=== PATIENT | male | born 1950 | race African-American/Black ===

== ENCOUNTER 2017-09-04 13:25 | Inpatient (IN) | payer MEDICARE, OTHER ==
[2017-09-04] MEDS ORDERED: Nitroglycerin 2% Ointment 1 INCH/1 GM Packet ONE (14:13)
[2017-09-04] MEDS ORDERED: Furosemide 40 MG/4 ML VIAL ONE (14:14)
--- NOTE | 2017-09-04 14:52 | RAD ---
SINGLE VIEW OF THE CHEST: Comparison: 09-08-11 History: Shortness of breath. Dyspnea. FINDINGS: Single view of the chest shows a normal sized cardiomediastinal silhouette. There is no evidence of c onsolidation, mass, or pleural effusion. The bones are unremarkable. IMPRESSION: No evidence of acute cardiopulmonary disease. POS: [facility]
[2017-09-04 14:56] LABS: #Eosinphils 0.1 thou/uL (0.0-0.7); #Lymphocytes 1.6 thou/uL (1.20-3.40); #Monocytes 0.4 thou/uL (0.11-0.59); #Neutrophils 11.3 thou/uL (1.40-6.50); %Basophils 0.2 % (0.0-1.0); %Eosinophils 0.4 % (0.0-10.0); %Lymphocytes 11.6 % (21.0-51.0); %Monocytes 2.6 % (0.0-10.0); %Neutrophils 85.2 % (42.0-75.0); Hemoglobin 12.1 g/dL (14.0-18.0); Mean Corpuscular HGB CONC 30.7 g/dL (32.0-36.0); Mean Corpuscular Volume 94.5 fl (80.0-94.0); Platelet Count 333 thou/uL (130-400); RBC Distribution Width 15.1 % (11.5-14.5); Red Blood Cell (RBC) Count 4.18 mill/uL (4.70-6.10); White Blood Cell (WBC) Count 13.3 thou/uL (4.8-10.8)
[2017-09-04 15:16] LABS: AST (SGOT) 27 U/L (5-34); Albumin 3.4 g/dL (3.4-4.8); Anion Gap 9 mmol/L (10-20); Bilirubin, Total 0.4 mg/dL (0.2-1.2); Calc. Creatinine Clearance 0 mL/min (70-130); Calcium 9.4 mg/dL (7.8-10.44); Carbon Dioxide 32 mmol/L (23-31); Chloride 105 mmol/L (98-107); Estimated GFR-MDRD 42; Globulin 3.7 g/dL (2.4-3.5); Glucose 180 mg/dL (80-115); Potassium 4.7 mmol/L (3.5-5.1); Protein, Total 7.1 g/dL (5.8-8.1); Sodium 141 mmol/L (136-145)
[2017-09-04 15:20] LABS: ALT (SGPT) 29 U/L (8-55); Alkaline Phosphatase 74 U/L (40-150); BUN (Urea Nitrogen) 31 mg/dL (8.4-25.7)
[2017-09-04 15:22] LABS: Troponin I 0.263 ng/mL (< 0.028)
[2017-09-04 15:24] LABS: CKMB 9.1 ng/mL (0-6.6)
[2017-09-04] MEDS ORDERED: Enoxaparin Sodium 80 MG/0.8 ML SYRINGE ONE (15:54)
--- NOTE | 2017-09-04 17:17 | PDOC.EVN ---
Event Note - Event Note Event Note: [id number] h&p dictated 1. Acute CHF exacerbation 2. Abnormal cardiac enzymes 3. dm type 2 4. H/O CAD
[2017-09-04] MEDS ORDERED: Dextrose 5% in Water 1,000 ML IV PRN (17:18)
[2017-09-04] MEDS ORDERED: Dextrose 50% Abboject 50 ML SYRINGE SLOW IVP PRN (17:18)
[2017-09-04] MEDS ORDERED: HumaLOG 300 UNITS/3 ML VIAL SC PRN (17:18)
[2017-09-04 18:37] LABS: Troponin I 0.243 ng/mL (< 0.028)
[2017-09-04 19:00] LABS: pH, Arterial 7.16 (7.35-7.45)
[2017-09-04 19:01] LABS: Actual Bicarbonate (HCO3a) 35.7 mEq/L (22-26); CO2 Tension 102.8 mmHg (35.0-45.0); Hematocrit-ABG 39.7 % (42.0-52.0); O2 Tension (PaO2) 69.7 mmHg (80.0-100.0)
[2017-09-04 19:02] LABS: Analyzer IN Cardio ER; Calcium, Ionized 1.3 mmol/L (1.12-1.30); Puncture Site RRA
[2017-09-04] MEDS ORDERED: Azithromycin 500 MG VIAL ONE (20:39)
[2017-09-04 20:49] LABS: CO2 Tension 93.7 mmHg (35.0-45.0); pH, Arterial 7.18 (7.35-7.45)
[2017-09-04 20:50] LABS: Actual Bicarbonate (HCO3a) 34.5 mEq/L (22-26); Base Excess (BEa) 3.7 mEq/L (0 (+/-) 2.5); Hematocrit-ABG 39.9 % (42.0-52.0); O2 Tension (PaO2) 113.5 mmHg (80.0-100.0)
[2017-09-04 20:51] LABS: Analyzer IN Cardio ER; Calcium, Ionized 1.3 mmol/L (1.12-1.30); Puncture Site RRA
[2017-09-04 20:52] LABS: ALV-art Gradient 121.375 (0-20)
[2017-09-04 21:35] LABS: Troponin I 0.218 ng/mL (< 0.028)
[2017-09-04 21:37] LABS: CKMB 8.5 ng/mL (0-6.6); Critical Call CKMBM RESULT DECREASING
[2017-09-04] MEDS: Furosemide 40 MG/4 ML VIAL SLOW IVP SCH (21:59)
[2017-09-04 22:44] VITALS: BMI 29.0
--- NOTE | 2017-09-05 02:35 | HP ---
DATE OF ADMISSION: 09/04/2017 CHIEF COMPLAINT: Dyspnea. HISTORY OF PRESENT ILLNESS: The patient is a 67-year-old male with past medical history of diabetes type 2, hypertension, coronary artery disease, ME in the past, now came today complaining of dyspnea, dyspnea was started 3 days back, dyspnea is persistent, dyspnea occurs even on lying flat, he cannot even lie flat. Complains of cough associated with white sputum production. Complains of bilateral lower extremity swelling. Swelling is first got worse swelling, swelling extends up to the thigh and the scrotal area also. Denies any fever, denies any chills. Dyspnea persisted today so he came to the ER. Denies any nausea, denies vomiting, denies any diarrhea. PAST MEDICAL HISTORY: As per HPI. PAST SURGICAL HISTORY: None. SOCIAL HISTORY: He used to smoke, but does not smoke anymore. Denies alcohol, denies any drugs. FAMILY HISTORY: Reviewed and positive for heart problems. MEDICATIONS: Reviewed. REVIEW OF SYSTEMS: Constitutional: Denies any fever, denies any chills. Eyes: Denies vision probl ems. Ears: Denies hearing loss. Neck: Denies any pain. Cardiovascular: Denies any chest pain, d enies any palpation. Respiratory: Positive for cough and sputum production. Gastrointestinal: Den ies nausea, vomiting. Musculoskeletal: positive for bilateral lower extremity swelling. Inte gumentary: No rashes seen. Psychiatric: anxiety. All other review of systems are reviewed a nd are negative. PHYSICAL EXAMINATION: VITAL SIGNS: At the time of H&P performed, blood pressure is 110/70, afebrile, respiratory rate 18 t o 20, pulse ox 96%. GENERAL APPEARANCE: The patient appears tired. HEENT: Ears and nose is patent. Teeth intact. Tongue is moist. NECK: Supple, no JVD. CARDIOVASCULAR: S1, S2 present. Regular rate and rhythm, no murmurs, no rubs, no gallops. RESPIRATORY: Positive for crackles. Positive for wheezing. Diminished breath sounds present bilate rally. GASTROINTESTINAL: Abdomen is soft, nontender, no guarding, no rebound, no masses felt. MUSCULOSKELETAL: Positive for 3+ edema. PSYCH: Mood is appropriate at this time. INTEGUMENT: No rashes seen. LABORATORY DATA: At the time of H&P performed, white count 13.3, hemoglobin 12.1, platelet count is 333. Sodium 141, potassium 4.7, chloride 105, CO2 of 32, BUN of 31, creatinine 1.93, CK-MB 9.1, trop onin 0.263. BNP is 518. ASSESSMENT AND PLAN: The patient is a 67-year-old male. 1. Acute congestive heart failure exacerbation. Plan to start patient on IV Lasix 40 b.i.d. Plan t o consult Cardiology to evaluate the patient. Plan to check 2D echo . 2. Abnormal cardiac enzymes. Plan to check cardiac enzymes. The patient already received a dose of Lovenox. We will check serial troponins. 3. History of diabetes mellitus type 2. Monitor blood sugars. We will do insulin sliding scale. 4. History of coronary artery disease. Continue aspirin. The case was discussed in detail with the patient.
[2017-09-05 04:58] LABS: ALT (SGPT) 28 U/L (8-55); AST (SGOT) 23 U/L (5-34); Albumin 3.4 g/dL (3.4-4.8); Alkaline Phosphatase 71 U/L (40-150); Bilirubin, Direct 0.2 mg/dL (0.1-0.3); Bilirubin, Total 0.3 mg/dL (0.2-1.2); Protein, Total 7.2 g/dL (5.8-8.1)
[2017-09-05] MEDS ORDERED: methylPREDNISolone Sod Succ/PF 125 MG/2 ML VIAL IVP SCH ×3 (06:15→12:00)
[2017-09-05] MEDS ORDERED: cefTRIAXone\\ROCEPHIN 1 GM, Syringe 0.4 ML in Sterile Water 9.6 ML SLOW IVP SCH (06:30)
[2017-09-05] MEDS ORDERED: Azithromycin 500 MG in Sodium Chloride 0.9% 250 ML 250 ML IVPB SCH ×2 (06:45→21:00)
[2017-09-05] MEDS: Aspirin 325 MG TAB PO SCH (08:50)
[2017-09-05] MEDS: Furosemide 40 MG/4 ML VIAL SLOW IVP SCH ×2 (08:50→20:31)
[2017-09-05] MEDS ORDERED: FLU VACC TS2017-18 (>65YR) 0.5 ML SYRINGE IM ONE (09:00)
[2017-09-05] MEDS ORDERED: Prevnar 13-Val Conj/PF 0.5 ML SYRINGE IM ONE (09:00)
--- NOTE | 2017-09-05 10:55 | CON ---
DATE OF CONSULTATION: 09/05/2017 CONSULTING PHYSICIAN: Hospitalist group. REASON FOR CONSULTATION: Shortness of breath. HISTORY OF PRESENT ILLNESS: The patient is a 67-year-old male, who presented to the hospital last night with lower extremity swelling that had been increasing over the last 3-4 days. He would also become dyspneic when lying flat. He says he had not been having any wheezing. This patient has seen Dr. Lowry numerous times in the past. He has severe obstruction on PFTs with a baseline FEV1 of 740 mL. He is currently using an albuterol and ipratropium nebulizer at home and is occasionally using a ProAir metered dose inhaler. He is not on oxygen therapy at home. Last night, he required BiPAP briefly. He was diuresed and says he is breathing better this morning. PAST MEDICAL HISTORY: 1. COPD. 2. Diabetes mellitus, type 2. 3. Hypertension. 4. Coronary artery disease. 5. Myocardial infarction. PAST SURGICAL HISTORY: None. SOCIAL HISTORY: He smoked up until 2011 when he had his heart attack and he quit. Does not consume alcohol, does not use any illicit drugs. FAMILY MEDICAL HISTORY: Unremarkable for COPD. MEDICATIONS: Prior to admission, in addition to the inhalers above, he is taking carvedilol 25 mg b.i.d., spironolactone 12.5 mg daily, losartan 25 mg daily, Lipitor 20 mg daily, metformin 500 mg nightly, Plavix 75 mg daily, amlodipine 5 mg daily, metformin 1000 mg every morning, lisinopril 20 mg b.i.d. REVIEW OF SYSTEMS: Twelve-point review of systems is otherwise negative. PHYSICAL EXAMINATION: VITAL SIGNS: Temperature 98.2, pulse 84, respirations 17, O2 sat 97% on 3 liters, blood pressure 119/74. GENERAL: He is awake and alert and in no distress. HEENT: Unremarkable. NECK: No JVD. LUNGS: Clear. No wheezing and no crackles. CARDIOVASCULAR: S1 and S2 regular. ABDOMEN: Soft, nontender. EXTREMITIES: Trace edema from the thighs downward. NEUROLOGIC: Grossly intact throughout. LABORATORY DATA: White blood cell count 13.8, hematocrit 39, platelet count 333. Last night, ABG showed a pH of 7.18, pCO2 of 93, PO2 of 113 on BiPAP. Sodium is 141, potassium 4.7, chloride 105, CO2 of 30, BUN 31, creatinine 1.9, glucose 180, troponin 0.21. ASSESSMENT: 1. Congestive heart failure - x-ray actually does not look that bad. Of note, his BNP was 518 when he came in and he did improve with diuresis. 2. Non-Q-wave myocardial infarction. 3. Underlying severe chronic obstructive pulmonary disease. 4. Acute on chronic respiratory failure, which has resolved. PLAN: He can probably be transferred out to the telemetry floor. I will reduce the steroid dose. He will continue nebulization treatments. He is on empiric antibiotics, although I am not completely sure what we are treating with those. He is continuing diuresis. I will start nebulization treatments. He can be transferred to telemetry. 70 minutes of time was spent performing this consultation. Of that 70 min, greater than 50% of the time was spent with the patient and/or on the patient's floor MTDD
--- NOTE | 2017-09-05 12:41 | PDOC.PN ---
- Subjective Encounter Start Date: 09/05/17 Encounter Start Time: 12:30 Subjective: f/u for acute CHF and COPD. States overall LE swelling with Lasix. No echo -: done to date. Dyspnea improved. - Objective MAR Reviewed: Yes Vital Signs & Weight: Vital Signs (12 hours) Temp Pulse Resp BP BP Pulse Ox 09/05/17 12:00 97.9 F 89 19 124/71 100 09/05/17 08:00 98.2 F 84 17 97 09/05/17 07:36 98.2 F 84 17 119/74 89 L 09/05/17 07:33 82 97 09/05/17 04:27 98.4 F 85 22 H 112/76 90 L 09/05/17 03:24 91 L Weight Weight 177 lb 1 oz I&O: 09/04/17 09/05/17 09/06/17 06:59 06:59 06:59 Output Total 500 Balance -500 Result Diagrams: 09/04/17 13:50 09/04/17 13:50 Additional Labs: Accuchecks 09/05/17 09/05/17 09/04/17 10:56 05:53 22:07 POC Glucose 155 H 145 H 131 H Laboratory Tests 06/25/15 09/04/17 09/04/17 08:59 13:50 13:50 Creatinine 1.32 H Troponin I 0.263 H B-Natriuretic Peptide 518.0 H 09/04/17 09/04/17 09/05/17 17:48 20:48 03:42 Creatinine Troponin I 0.243 H 0.218 H B-Natriuretic Peptide 361.0 H Radiology Reviewed by me: Yes (PCXR - no acute process) EKG Reviewed by me: Yes (Tele - SR with T-wave inversion) Phys Exam - Physical Examination Constitutional: NAD HEENT: PERRLA, oral pharynx no lesions Neck: no JVD, supple diminished in bases bilat Cardiovascular: RRR Gastrointestinal: soft, non-tender, no distention, positive bowel sounds bilat LE's Musculoskeletal: pulses present, edema present Neurological: normal sensation, moves all 4 limbs Psychiatric: A&O x 3 Skin: normal turgor, cap refill <2 seconds Dx/Plan (1) CHF (congestive heart failure) Code(s): I50.9 - HEART FAILURE, UNSPECIFIED Status: Acute Qualifiers: Heart failure type: diastolic Comment: Continue Lasix 40mg IV BID, monitor I/O's (2) Elevated troponin I level Code(s): R74.8 - ABNORMAL LEVELS OF OTHER SERUM ENZYMES Status: Acute Comment: Likely demand state, Cardiology consultation (3) CKD (chronic kidney disease) stage 3, GFR 30-59 ml/min Code(s): N18.3 - CHRONIC KIDNEY DISEASE, STAGE 3 (MODERATE) Status: Chronic Comment: ? baseline, follow serial creatinine (4) DM II (diabetes mellitus, type II), controlled Code(s): E11.9 - TYPE 2 DIABETES MELLITUS WITHOUT COMPLICATIONS Status: Chronic Comment: Hold Metformin another 24h, ISS (5) HTN (hypertension) Code(s): I10 - ESSENTIAL (PRIMARY) HYPERTENSION Status: Chronic Qualifiers: Hypertension type: essential hypertension Qualified Code(s): I10 - Essential (primary) hypertension Comment: Labile, Resume home Coreg, Cozaar, Spironolactone (6) COPD (chronic obstructive pulmonary disease) Status: Chronic Comment: Janeth Zithromax, Solumedrol - Plan plan discussed w/ family, continue antibiotics, PT/OT, social work specialist, respiratory therapy, out of bed/ambulate Stable overall -: Continue pulmonary supportive measures -: Continue Lasix 40mg IV BID -: Continue Solumedrol 20mg IV q6h -: PT for mobilization * AM lab: BMP, CBC
[2017-09-05] MEDS: HumaLOG 300 UNITS/3 ML VIAL SC PRN (17:53)
[2017-09-05] MEDS: Carvedilol 25 MG TAB PO SCH (20:31)
[2017-09-05] MEDS: Atorvastatin Calcium 20 MG TAB PO SCH (20:31)
[2017-09-06 04:36] LABS: Anion Gap 13 mmol/L (10-20); BUN (Urea Nitrogen) 49 mg/dL (8.4-25.7); Calc. Creatinine Clearance 36 mL/min (70-130); Calcium 8.4 mg/dL (7.8-10.44); Carbon Dioxide 31 mmol/L (23-31); Chloride 100 mmol/L (98-107); Estimated GFR-MDRD 35; Glucose 201 mg/dL (80-115); Potassium 5.2 mmol/L (3.5-5.1); Sodium 139 mmol/L (136-145)
[2017-09-06] MEDS: HumaLOG 300 UNITS/3 ML VIAL SC PRN (05:41)
[2017-09-06 06:08] LABS: Hemoglobin 11.6 g/dL (14.0-18.0); MDiff Complete? YES; Mean Corpuscular HGB CONC 30.2 g/dL (32.0-36.0); Mean Corpuscular Hemoglobin 28.9 pg (27.0-31.0); Mean Corpuscular Volume 95.8 fl (80.0-94.0); Mean Platelet Volume 8.4 fL (7.4-10.4); Platelet Count 302 thou/uL (130-400); Red Blood Cell (RBC) Count 4.01 mill/uL (4.70-6.10); White Blood Cell (WBC) Count 13.2 thou/uL (4.8-10.8)
[2017-09-06 06:09] LABS: Band 4 % (5-11); Lymphocytes 9 % (21-51); Monocytes 2 % (0-10); Neutrophil 85 % (42-75); PLT Morphology Comment Appears Adequate
[2017-09-06] MEDS ORDERED: Losartan 25 MG TAB PO SCH (09:00)
[2017-09-06] MEDS: Carvedilol 25 MG TAB PO SCH ×2 (09:27→20:38)
[2017-09-06] MEDS: Furosemide 40 MG/4 ML VIAL SLOW IVP SCH ×2 (09:27→20:37)
[2017-09-06] MEDS: Clopidogrel Bisulfate 75 MG TAB PO SCH (09:27)
[2017-09-06] MEDS: Spironolactone 25 MG TAB PO SCH (09:27)
[2017-09-06] MEDS: Aspirin 325 MG TAB PO SCH (09:27)
--- NOTE | 2017-09-06 15:20 | PDOC.PN ---
- Subjective Encounter Start Date: 09/06/17 Encounter Start Time: 15:10 Subjective: f/u for dyspnea, CHF and COPD. Overall feeling better and dyspnea improved. -: Diuresing with Lasix and ambulating in halls. - Objective MAR Reviewed: Yes Vital Signs & Weight: Vital Signs (12 hours) Temp Pulse Pulse Pulse Resp BP BP 09/06/17 14:35 70 15 09/06/17 10:54 72 15 09/06/17 09:32 89 85 152/84 H 124/75 09/06/17 08:17 80 16 09/06/17 08:00 98.5 F 76 16 09/06/17 07:16 98.5 F 76 20 09/06/17 04:52 97.7 F 73 16 BP Pulse Ox Pulse Ox Pulse Ox 09/06/17 14:35 100 09/06/17 10:54 100 09/06/17 09:32 93 L 97 09/06/17 08:17 96 09/06/17 08:00 97 09/06/17 07:16 115/64 88 L 09/06/17 04:52 95/54 L 93 L Weight Weight 175 lb 14.4 oz I&O: 09/05/17 09/06/17 09/07/17 06:59 06:59 06:59 Intake Total 1280 Output Total 500 1550 Balance -500 -270 Result Diagrams: 09/06/17 03:35 09/06/17 03:35 Additional Labs: Accuchecks 09/06/17 09/06/17 09/05/17 11:33 05:40 20:10 POC Glucose 217 H 190 H 193 H 09/05/17 16:37 POC Glucose 170 H Laboratory Tests 06/25/15 09/04/17 09/04/17 08:59 13:50 13:50 Potassium 4.7 Creatinine 1.32 H 1.93 H Troponin I 0.263 H B-Natriuretic Peptide 09/04/17 09/04/17 09/04/17 13:50 17:48 20:48 Potassium Creatinine Troponin I 0.243 H 0.218 H B-Natriuretic Peptide 518.0 H 09/05/17 03:42 Potassium Creatinine Troponin I B-Natriuretic Peptide 361.0 H EKG Reviewed by me: Yes (Tele - SR ) Phys Exam - Physical Examination Constitutional: NAD HEENT: PERRLA, oral pharynx no lesions Neck: no JVD, supple Diminished in bases Cardiovascular: RRR Gastrointestinal: soft, non-tender, no distention, positive bowel sounds Musculoskeletal: pulses present, edema present Neurological: normal sensation, moves all 4 limbs Psychiatric: A&O x 3 Skin: normal turgor, cap refill <2 seconds Dx/Plan (1) CHF (congestive heart failure) Code(s): I50.9 - HEART FAILURE, UNSPECIFIED Status: Acute Qualifiers: Heart failure type: diastolic Comment: Continue Lasix 20mg IV BID, follow I/O's, daily weight (2) Elevated troponin I level Code(s): R74.8 - ABNORMAL LEVELS OF OTHER SERUM ENZYMES Status: Acute Comment: Likely demand state, Cardiology consultation pending (3) CKD (chronic kidney disease) stage 3, GFR 30-59 ml/min Code(s): N18.3 - CHRONIC KIDNEY DISEASE, STAGE 3 (MODERATE) Status: Chronic Comment: ? baseline, follow serial creatinine (4) DM II (diabetes mellitus, type II), controlled Code(s): E11.9 - TYPE 2 DIABETES MELLITUS WITHOUT COMPLICATIONS Status: Chronic Comment: Hold Metformin another 24h, ISS (5) HTN (hypertension) Code(s): I10 - ESSENTIAL (PRIMARY) HYPERTENSION Status: Chronic Qualifiers: Hypertension type: essential hypertension Qualified Code(s): I10 - Essential (primary) hypertension Comment: Labile, Resume home Coreg, Cozaar, Spironolactone (6) COPD (chronic obstructive pulmonary disease) Status: Chronic Comment: Duonebs, Zithromax, Solumedrol, add Dulera 2 puffs BID (7) GER[place]IA (acute kidney injury) Code(s): N17.9 - ACUTE KIDNEY FAILURE, UNSPECIFIED Status: Acute Comment: Decrease Lasix 20mg IV q12h, hold Cozaar, avoid nephrotoxic meds and contrast media - Plan plan discussed w/ family, continue antibiotics, PT/OT, neonatal social worker, respiratory therapy, out of bed/ambulate, DVT proph w/SCDs Stable overall -: Decrease Lasix 20mg IV q12h -: Hold Cozaar x 48h -: OOB/ambulate -: Add Dulera 2 puffs BID * AM lab: BMP * Transfer to tele
[2017-09-06] MEDS ORDERED: Furosemide 40 MG/4 ML VIAL SLOW IVP SCH (15:30)
--- NOTE | 2017-09-06 16:32 | PRG ---
DATE OF SERVICE: 09/06/2017 SUBJECTIVE: Mr. Mcqueen is a pleasant gentleman with COPD. He had been seen by me for a while. He w as admitted yesterday and Dr. Santillan was consulted. He is complaining of lower extremity edema. His chest radiograph did not show any evidence of pulmon kimberly edema. He did clinically improve with diuresis. I suspect more of his shortness of breath was related to CO PD and his lower extremity edema could be related to heart function and COPD. He has fairly advanced obstructive lung disease. OBJECTIVE: VITAL SIGNS: Today, blood pressure is 150/84, heart rate is 88, respiratory rate is 18 and oximetry is 100% on 2 liters. LUNGS: Clear. HEART: Regular rhythm. ABDOMEN: Soft. IMPRESSION AND PLAN: Chronic obstructive pulmonary disease exacerbation. I will repeat a radiograph tomorrow to make sure he has not developed an infiltrate that could be consistent with pneumonia and probably can be switched to p.o. antibiotics in the morning. Probably will be switched to p.o. steroids also tomorrow if he has a good night. I had a long discussion about follow ups in the office to hopefully avoid recurrent hospitalizations. At this point in time, appears to be clinically stable.
[2017-09-06] MEDS: Mometasone/Formoterol 120 PUFF INHALER INH SCH (18:59)
[2017-09-06] MEDS: Atorvastatin Calcium 20 MG TAB PO SCH (20:38)
--- NOTE | 2017-09-06 20:57 | CON ---
CARDIOLOGY CONSULTATION NOTE DATE OF CONSULTATION: 09/06/2017 INDICATION FOR CONSULTATION: A 67-year-old gentleman with a known history of coronary disease and co ngestive heart failure symptoms and severe COPD. He was admitted due to increasing shortness of reagan th and lower extremity edema. He was felt to have COPD exacerbation as well as some congestive heart failure symptoms. He underwent some diuresis and hence was feeling better. He had an echocardiogra m, which showed an ejection fraction of 45% to 50% with mild mitral and tricuspid valve regurgitation . His chest x-ray did not show any significant abnormalities, but appears to have significant COPD. He did undergo a cardiac catheterization in 2011, by Dr. Foreman, which showed moderate left main s tenosis about 45% with significant 3-vessel coronary artery disease. The right coronary was 100% occ luded. The first obtuse marginal branch was 70% occluded, the second obtuse marginal branch was 70% occluded and the left circumflex was 70% occluded in the mid-section. The left anterior descending a rtery had serial lesions of 70% to 90% stenosis with significant calcification. The first and second diagonal branches also has severe disease. First diagonal branch with 80% stenosis, second diagonal branch was subtotal. At that time, ejection fraction was felt to be about 30% by cardiac catheteriz ation. He has been followed up in the office since 2014. He had not been complaining of any signifi cant symptoms until he has recently been noticed with increasing shortness of breath. He denies any chest pain. He has stopped taking all of his medicines in 2016. He also has not been following with the playground supervisor apparently. He has been noncompliant with medications, as well as his follow ups. At this time, he presented in to the hospital and his cardiac enzymes are somewhat indeterminate, b ut most likely non-ST segment elevation myocardial infarction. Troponin I was 0.243 and then decreas ed down to 0.218. His MBs decreased from 9.1 to 8.5. His BNP was 518. His creatinine has increased from 1.93 on admission to 2.29. Also EKG at this time shows some evidence of second-degree heart bl ock type 2 for short episodes. Otherwise, he has been asymptomatic with this. At this time, he is r elatively comfortable and has been relatively stable. I have seen the patient today in consultation and he appears to be very comfortable. PAST MEDICAL HISTORY: Significant for coronary artery disease, type 2 diabetes, hypertension, dyslip idemia and history of tobacco abuse in the past, he stopped in 2011. He has had a history of myocard ial infarction also in 2012, has history of COPD. ALLERGIES: None. MEDICATIONS: Prior to admission. He was not taking any medications, but did take an inhaler, which he feels like this would cause him to have the worsening of his COPD or worsening of his breathing or shortness of breath, but at this time his medications include aspirin 325 mg a day, Lipitor 20 mg a day. He has been placed on azithromycin. He is on Coreg 25 mg b.i.d. He is also on ceftriaxone, Pl avix 75 mg a day, Lasix 40 mg. Actually, he has been given 20 mg IV today. He has been given 40 mg IV. He is on p.r.n. medications. He is on losartan 25 mg a day. He has been placed on prednisone 2 0 mg IV q.6 hours. He is on inhalers and he is on Aldactone 12.5 mg q. day. REVIEW OF SYSTEMS: A 12-point review of systems is relatively unremarkable except for the shortness of breath. He has had no new HEENT complaints. He did complain of some coughing and some congestion . He denied any chest pain. He had no GI or complaints. MUSCULOSKELETAL: He has some mild edema, otherwise no significant complaints on the review of system s. PHYSICAL EXAMINATION: GENERAL: Reveals an elderly gentleman who is in no acute distress at this time. VITAL SIGNS: Blood pressure is 126/81, heart rate is 72 and regular, respiratory rate is 24 and O2 s aturation is 93%. He is afebrile. HEENT: Shows the head to be normocephalic and atraumatic. NECK: Carotid pulses are present. I did not hear any significant bruits. There is no JVD. The thy roid did not appear to be enlarged. Oral mucosa was pink and moist. CHEST: Has some decreased breath sounds throughout, but no rales, rhonchi, or wheezing are appreciat ed. CARDIOVASCULAR: Reveals a regular rate and rhythm. There is a normal S1 and S2. I cannot hear an S 3 nor an S4, nor there are any significant murmurs, heaves, thrills, bruits or rubs noted. He has a very soft systolic murmur at the apex, which is within normal limits. ABDOMEN: Soft and tender and positive bowel sounds are present. EXTREMITIES: Showed no clubbing, cyanosis or edema. I cannot palpate pedal pulses. It is very diff icult to palpate popliteal pulses. He has a very soft left femoral bruit. NEUROLOGIC: The patient appears to be intact. SKIN: Warm and dry. IMPRESSION AND PLAN: 1. Chronic obstructive pulmonary disease exacerbation in this elderly gentleman who has been noncomp liant with followups in medications. He has been seen by the playground supervisor who will continue to foll ow up with them. 2. Severe 3-vessel coronary artery disease, which was felt to be inoperable by the CT surgeons in 04 07 due to his intermittent risk due to his chronic obstructive pulmonary disease. I have discussed t his with Dr. Lowry again today and he also feels that the patient is still a very poor candidate for bypass surgery due to his severe chronic obstructive pulmonary disease. 3. Second-degree AV heart block type 2. This has been an intermittent phenomenon. We will continue to monitor him. If he continues to have more episodes, then he would be a candidate to undergo pace maker insertion. 4. History of diabetes, which will be dealt with by the primary care service. 5. History of hyperlipidemia. He will continue his medications and hopefully we will resume his med ications and feel the medications to be more compliant. We will be more than happy to continue to fo llow this patient with you, but I would suggest medical management at this time with the beta grisel s as well as the other medications as noted above. Certainly we will be able to try if he can contin ue the Plavix tonight, it will also be helpful in this gentleman as well as the aspirin.
[2017-09-07 04:32] LABS: Anion Gap 11 mmol/L (10-20); BUN (Urea Nitrogen) 55 mg/dL (8.4-25.7); Calc. Creatinine Clearance 37 mL/min (70-130); Calcium 8.4 mg/dL (7.8-10.44); Carbon Dioxide 36 mmol/L (23-31); Chloride 97 mmol/L (98-107); Estimated GFR-MDRD 36; Glucose 302 mg/dL (80-115); Potassium 4.7 mmol/L (3.5-5.1); Sodium 139 mmol/L (136-145)
[2017-09-07] MEDS: HumaLOG 300 UNITS/3 ML VIAL SC PRN ×2 (05:42→17:08)
--- NOTE | 2017-09-07 07:43 | RAD ---
SINGLE VIEW OF THE CHEST: COMPARISON: 09/04/17. HISTORY: CHF. FINDINGS: A single view of the chest shows an enlarged but stable cardiomediastinal silhouette. There is no ev idence of consolidation, mass, or pleural effusion. The bones are unremarkable. IMPRESSION: Cardiomegaly without evidence of acute cardiopulmonary disease. POS: [facility]
[2017-09-07] MEDS: Spironolactone 25 MG TAB PO SCH (07:44)
[2017-09-07] MEDS: Carvedilol 25 MG TAB PO SCH ×2 (07:44→20:13)
[2017-09-07] MEDS: Aspirin 325 MG TAB PO SCH (07:44)
[2017-09-07] MEDS: Clopidogrel Bisulfate 75 MG TAB PO SCH (07:44)
[2017-09-07] MEDS: Azithromycin 250 MG TAB PO SCH (07:44)
[2017-09-07] MEDS: Furosemide 40 MG/4 ML VIAL SLOW IVP SCH (07:44)
[2017-09-07] MEDS: Mometasone/Formoterol 120 PUFF INHALER INH SCH ×2 (08:48→19:12)
[2017-09-07] MEDS ORDERED: Azithromycin 200 MG/5 ML Oral Suspension PO SCH (09:00)
--- NOTE | 2017-09-07 12:51 | PRG ---
DATE OF SERVICE: 09/07/2017 SUBJECTIVE: Jasmeet Mcqueen is walking in the [place]. Physical therapy is doing surprisingly well. PHYSICAL EXAMINATION: VITAL SIGNS: His heart rate is in 80s, respiratory rate is 20, oximetry is 100% on 2 liters, blood p ressure 175/93, earlier then 159/85. LUNGS: Clear and distant. HEART: Regular rhythm. ABDOMEN: Soft and nontender. EXTREMITIES: Without edema. LABORATORY DATA: White count is 13.2 yesterday. There is no lab today. Sodium 139, potassium 4.7, chloride 97, bicarbonate 36, BUN 55, creatinine 2.22, creatinine was 1.93 on admission. IMPRESSION: 1. Chronic obstructive pulmonary disease exacerbation. 2. Cor pulmonale. 3. Mildly decreased systolic function with an echo showing an ejection fraction of 45%-50% and mild mitral regurgitation. 4. Chronic obstructive pulmonary disease is more of an admission component than congestive heart joaquín lure, especially in light of the fact that his chest radiograph was very unimpressive and showed no p ulmonary edema. Chest radiograph was repeated today. I have reviewed this. He has not developed any pulmonary edema or alveolar infiltrates that would suggest he was done with pneumonia when he came in. Continue physical therapy. He can be switched to p.o. antimicrobial therapy and p.o. steroids today.
[2017-09-07] MEDS ORDERED: Benzonatate 100 MG CAP PO PRN (12:59)
--- NOTE | 2017-09-07 13:32 | PDOC.PN ---
- Subjective Encounter Start Date: 09/07/17 Encounter Start Time: 13:30 Subjective: f/u for COPD and hypoxia and CHF exacerbation. Overall improved and doing -: better. LE swelling decreased. - Objective MAR Reviewed: Yes Vital Signs & Weight: Vital Signs (12 hours) Temp Pulse Pulse Pulse Resp BP BP 09/07/17 12:29 76 24 H 09/07/17 12:00 97.8 F 76 20 09/07/17 09:06 92 84 175/93 H 159/85 H 09/07/17 08:48 87 20 09/07/17 08:28 09/07/17 08:26 87 20 09/07/17 08:00 97.7 F 80 22 H 09/07/17 07:00 97.7 F 80 22 H 09/07/17 03:56 97.9 F 78 15 09/07/17 02:10 88 16 BP Pulse Ox Pulse Ox Pulse Ox 09/07/17 12:29 100 09/07/17 12:00 128/78 100 09/07/17 09:06 100 100 09/07/17 08:48 100 09/07/17 08:28 100 09/07/17 08:26 100 09/07/17 08:00 100 09/07/17 07:00 161/96 H 100 09/07/17 03:56 142/90 H 100 09/07/17 02:10 95 Weight Weight 175 lb 8 oz I&O: 09/06/17 09/07/17 09/08/17 06:59 06:59 06:59 Intake Total 1280 1580 Output Total 1550 2170 Balance -270 -590 Result Diagrams: 09/06/17 03:35 09/07/17 03:15 Additional Labs: Accuchecks 09/07/17 09/07/17 09/06/17 10:33 05:43 20:37 POC Glucose 236 H 256 H 317 H 09/06/17 17:05 POC Glucose 189 H Radiology Reviewed by me: Yes (PCXR - no acute process, no edema) EKG Reviewed by me: Yes (Tele - SR) Phys Exam - Physical Examination Constitutional: NAD HEENT: PERRLA, oral pharynx no lesions Neck: no JVD, supple few scattered coarse sounds Respiratory: no wheezing Cardiovascular: RRR scrotal edema present but decreased Gastrointestinal: soft, non-tender, no distention, positive bowel sounds decreased edema Musculoskeletal: pulses present Neurological: normal sensation, moves all 4 limbs Psychiatric: A&O x 3 Skin: normal turgor, cap refill <2 seconds Dx/Plan (1) CHF (congestive heart failure) Code(s): I50.9 - HEART FAILURE, UNSPECIFIED Status: Acute Qualifiers: Heart failure type: diastolic Comment: Improved, change Lasix 40mg po daily (2) Elevated troponin I level Code(s): R74.8 - ABNORMAL LEVELS OF OTHER SERUM ENZYMES Status: Acute Comment: Likely demand state, Cardiology consultation pending (3) CKD (chronic kidney disease) stage 3, GFR 30-59 ml/min Code(s): N18.3 - CHRONIC KIDNEY DISEASE, STAGE 3 (MODERATE) Status: Chronic Comment: ? baseline, follow serial creatinine (4) DM II (diabetes mellitus, type II), controlled Code(s): E11.9 - TYPE 2 DIABETES MELLITUS WITHOUT COMPLICATIONS Status: Chronic Comment: Hold Metformin another 24h, ISS (5) HTN (hypertension) Code(s): I10 - ESSENTIAL (PRIMARY) HYPERTENSION Status: Chronic Qualifiers: Hypertension type: essential hypertension Qualified Code(s): I10 - Essential (primary) hypertension Comment: Labile, Resume home Coreg, Cozaar, Spironolactone (6) COPD (chronic obstructive pulmonary disease) Status: Chronic Qualifiers: COPD type: COPD with acute exacerbation Qualified Code(s): J44.1 - Chronic obstructive pulmonary disease with (acute) exacerbation Comment: Duonebs, Zithromax, Prednisone, add Dulera 2 puffs BID (7) GERMANIA (acute kidney injury) Code(s): N17.9 - ACUTE KIDNEY FAILURE, UNSPECIFIED Status: Acute Comment: Lasix 40mg po daily, hold Cozaar, avoid nephrotoxic meds and contrast media - Plan plan discussed w/ family, continue antibiotics, PT/OT, social work supervisor, respiratory therapy, out of bed/ambulate, DVT proph w/SCDs Stable overall -: Prednisone 40mg daily -: Change Lasix 40mg po daily -: OOB/ambulate -: Am lab: BMP * .
--- NOTE | 2017-09-07 14:31 | PDOC.CTH ---
<Eve Merino - Last Filed: 09/07/17 14:28> Cardiology Progress Note - Subjective The pt seen and examined. No overnight events. No cardiac complaints. He has been RA since this AM without any distress. - Objective Vital Signs Temp Pulse Pulse Pulse Resp BP BP 09/07/17 12:29 76 24 H 09/07/17 12:00 97.8 F 76 20 09/07/17 09:06 92 84 175/93 H 159/85 H 09/07/17 08:48 87 20 09/07/17 08:28 09/07/17 08:26 87 20 09/07/17 08:00 97.7 F 80 22 H 09/07/17 07:00 97.7 F 80 22 H 09/07/17 03:56 97.9 F 78 15 BP Pulse Ox Pulse Ox Pulse Ox 09/07/17 12:29 100 09/07/17 12:00 128/78 100 09/07/17 09:06 100 100 09/07/17 08:48 100 09/07/17 08:28 100 09/07/17 08:26 100 09/07/17 08:00 100 09/07/17 07:00 161/96 H 100 09/07/17 03:56 142/90 H 100 Weight 175 lb 8 oz 09/06/17 09/07/17 09/08/17 06:59 06:59 06:59 Intake Total 1280 1580 Output Total 1550 2170 Balance -270 -590 - Physical Examination General/Neuro: alert & oriented x3 Neck: no JVD present Lungs: other: (diminished at bases) Heart: RRR Abdomen: soft Extremities: + edema B (1-2+ pitting BLE edema) - Telemetry Telemetry Rhythm: SR - Labs Result Diagrams: 09/06/17 03:35 09/07/17 03:15 Troponin/CKMB CK-MB (CK-2) 8.5 ng/mL (0-6.6) H* 09/04/17 20:48 Troponin I 0.218 ng/mL (< 0.028) H 09/04/17 20:48 - Assessment/Plan 1. Acute on Chronic Diastolic HF - improving with Lasix; on BBlocker, but not on TYRON due to hx of CKD; cont. monitor 2. COPD exacerbation - stable with RA at this moment; managed by Motion Graphics Designer 3. Intermittent 2nd AVB type 2 - Remain in SR; cont. monitor on tele 4. 3V CAD - stable; on BBloker, ASA, and Plavix; Not good candidate for CABG due to severe COPD 5. HTN - stable with current medication 6. GERMANIA on CKD - slightly improved today; cont. monitor 7. DM type 2 - ACHS BG check with SS insulin; managed by PCP 8. Hyperlipidemia - on Lipitor MAR reviewed . Review of Systems - Review of Systems Constitutional: reports: no symptoms reported EENTM: reports: no symptoms reported Respiratory: reports: see HPI Cardiac (ROS): reports: no symptoms reported ABD/GI: reports: no symptoms reported : reports: no symptoms reported Musculoskeletal: reports: no symptoms reported Skin: reports: no symptoms reported <Jordon Muhammad - Last Filed: 09/07/17 18:52> Cardiology Progress Note - Objective Vital Signs Temp Pulse Pulse Pulse Resp BP BP 09/07/17 17:31 97.2 F L 74 18 09/07/17 16:00 98.3 F 72 20 09/07/17 15:31 79 20 09/07/17 12:29 76 24 H 09/07/17 12:00 97.8 F 76 20 09/07/17 09:06 92 84 175/93 H 159/85 H 09/07/17 08:48 87 20 09/07/17 08:28 09/07/17 08:26 87 20 09/07/17 08:00 97.7 F 80 22 H 09/07/17 07:00 97.7 F 80 22 H BP Pulse Ox Pulse Ox Pulse Ox 09/07/17 17:31 168/90 H 99 09/07/17 16:00 149/96 H 100 09/07/17 15:31 100 09/07/17 12:29 100 09/07/17 12:00 128/78 100 09/07/17 09:06 100 100 09/07/17 08:48 100 09/07/17 08:28 100 09/07/17 08:26 100 09/07/17 08:00 100 09/07/17 07:00 161/96 H 100 Weight 175 lb 8 oz 09/06/17 09/07/17 09/08/17 06:59 06:59 06:59 Intake Total 1280 1580 240 Output Total 1550 2170 900 Balance -270 -590 -660 - Labs Result Diagrams: 09/06/17 03:35 09/07/17 03:15 Troponin/CKMB CK-MB (CK-2) 8.5 ng/mL (0-6.6) H* 09/04/17 20:48 Troponin I 0.218 ng/mL (< 0.028) H 09/04/17 20:48 - Assessment/Plan Pt. seen and eval. by me. I agree with the A/P by the SECOND CHEF. He is feeling better. Denies chest pain. Decreased breath sounds throyghout. RRR.
[2017-09-07] MEDS: Atorvastatin Calcium 20 MG TAB PO SCH (20:13)
[2017-09-08 05:38] LABS: BUN (Urea Nitrogen) 48 mg/dL (8.4-25.7); Calc. Creatinine Clearance 43 mL/min (70-130); Calcium 8.6 mg/dL (7.8-10.44); Estimated GFR-MDRD 43; Glucose 209 mg/dL (80-115)
[2017-09-08 05:47] LABS: Anion Gap 11 mmol/L (10-20); Carbon Dioxide 35 mmol/L (23-31); Chloride 100 mmol/L (98-107); Potassium 3.7 mmol/L (3.5-5.1); Sodium 142 mmol/L (136-145)
[2017-09-08] MEDS: Mometasone/Formoterol 120 PUFF INHALER INH SCH ×2 (07:24→19:47)
[2017-09-08] MEDS ORDERED: Furosemide 40 MG TAB PO SCH (07:30)
[2017-09-08] MEDS ORDERED: predniSONE 20 MG TAB PO SCH (08:00)
[2017-09-08] MEDS: HumaLOG 300 UNITS/3 ML VIAL SC PRN (08:25)
[2017-09-08] MEDS: Azithromycin 250 MG TAB PO SCH (08:26)
[2017-09-08] MEDS: Clopidogrel Bisulfate 75 MG TAB PO SCH (08:27)
[2017-09-08] MEDS: Aspirin 325 MG TAB PO SCH (08:27)
[2017-09-08] MEDS: Spironolactone 25 MG TAB PO SCH (08:27)
[2017-09-08] MEDS: Carvedilol 25 MG TAB PO SCH (08:27)
--- NOTE | 2017-09-08 13:43 | PRG ---
DATE OF SERVICE: 09/08/2017 SUBJECTIVE: He feels better and wants to go home. PHYSICAL EXAMINATION: VITAL SIGNS: Temperature 98.1, pulse 72, respirations 14, O2 sat 93% on 2 liters, blood pressure 125 /80. HEENT: Unremarkable. NECK: No JVD. CHEST: Clear without wheezing or rhonchi. CARDIAC: S1 and S2 regular. ABDOMEN: Soft. EXTREMITIES: No edema. LABORATORY DATA: Sodium 142, potassium 3.7, chloride 100, CO2 35, BUN 48, creatinine 1.8, glucose 20 9. ASSESSMENT: 1. Chronic obstructive pulmonary disease with exacerbation. 2. Hypoxemia. 3. Decreased systolic function. PLAN: Home O2 evaluation. I believe that he could go home, provided home O2 with setup. He can fol low up with Dr. Lowry in the office for COPD. Steroids should be tapered over 2 weeks.
[2017-09-08 15:20] VITALS: BP 141/86; TEMP 97.7
--- NOTE | 2017-09-08 19:13 | DIS ---
DATE OF ADMISSION: 09/04/2017 DATE OF DISCHARGE: 09/08/2017 DISCHARGE DIAGNOSES: 1. Acute exacerbation of chronic obstructive pulmonary disease. 2. Acute on chronic hypoxemic respiratory failure with oxygen supplementation at 2 liters per minute by nasal cannula. 3. Acute diastolic congestive heart failure exacerbation with ejection fraction of 45% to 50%. 4. Elevated troponin I secondary to demand ischemia. 5. Acute kidney injury on chronic kidney disease stage 3. 6. Diabetes mellitus type 2, stable. 7. Hypertension, labile. CONSULTATIONS: Dr. Santillan and Dr. Lowry with Pulmonology Service. PERTINENT LABORATORY AND X-RAY FINDINGS: Creatinine ranged between 1.89 to 2.29 with estimated GFR r anging between 35 to 43, troponin I ranged between 0.218 to 0.263. BNP 518. CBC showed a white bloo d cell count of 13.3, hemoglobin 12, hematocrit 40, platelet count 333. Portable chest x-ray dated o n 09/04/2017 showed no acute cardiopulmonary process. A 2D transthoracic echocardiogram dated on showed ejection fraction of 45% to 50%. Mild to moderate left atrial enlargement. Mild mitr al regurgitation. Portable chest x-ray dated on 09/07/2017 showed no acute cardiopulmonary process. Cardiomegaly noted. HOSPITAL COURSE: Patient was initially admitted to the intermediate care unit after presenting with acute dyspnea and hypoxemia with associated bilateral lower extremity and scrotal edema. Patient was initially placed in the Intermediate Care Unit and given IV Lasix 40 mg q.12 hours with 2D transthor acic echocardiogram showing overall preserved ejection fraction of 45% to 50% and diastolic dysfuncti on. Patient was evaluated by the Cardiology service due to the heart failure exacerbation in [facility] to elevated troponin I, likely demand ischemic state in conjunction with COPD exacerbation. Patien t with known severe three-vessel coronary artery disease felt to be inoperable by Vascular Surgery Se rvice. Patient was medically managed throughout the hospital course without further clinical decompe nsation. Patient was also given aggressive pulmonary supportive measures including IV Solu-Medrol, b ronchodilator therapy, and Dulera 2 puffs b.i.d. Patient was slow to clinically improve and was not able to wean off oxygen supplementation. Patient was noted with O2 saturations in the upper 70% rang e on room air and due to persistent hypoxemia and clinical decompensation was evaluated for home oxyg en therapy. Patient transitioned to prednisone therapy as well as oral Zithromax and will continue o n an outpatient basis. Overall, patient clinically stable tolerating regular oral intake, ambulating without assistance, difficulty, and voiding appropriately. Patient ready for discharge 09/08/2017. DISCHARGE MEDICATIONS: 1. Ventolin HFA 90 mcg inhaled q.4 hours p.r.n. 2. Amlodipine 5 mg one tablet p.o. daily. 3. Lipitor 20 mg p.o. at bedtime. 4. Zithromax 500 mg p.o. daily x5 days. 5. Carvedilol 25 mg p.o. b.i.d. 6. Plavix 75 mg 1 tab p.o. daily. 7. Lasix 40 mg 1 tab p.o. daily. 8. Lisinopril 20 mg p.o. b.i.d., hold until first followup visit with primary care provider. 9. Cozaar 25 mg 1 tab p.o. daily. 10. Metformin 1000 mg p.o. q.a.m. and 500 mg p.o. at bedtime hold until first followup visit with [facility] care provider. 11. Dulera 200/5 mcg 2 puffs inhaled b.i.d. 12. Prednisone 20 mg 2 tabs p.o. daily x2 days, followed by 1 tab p.o. daily x3 days, followed by perez lf a tab p.o. daily x3 days. 13. Spironolactone 12.5 mg p.o. daily. FOLLOWUP: Patient may follow with Dr. Sunny Sullivan within 7 days of discharge. Patient follow up with Dr. Lowry with Pulmonology Service and to call his office for appointment time and date. CONDITION ON DISCHARGE: Fair. ACTIVITY: Ad elvin. DIET: Heart healthy and ADA. SPECIAL INSTRUCTIONS: Patient will be set up for home oxygen therapy due to persistent hypoxemia, ch ronic obstructive pulmonary disease, and diastolic congestive heart failure. CODE STATUS: FULL. DISPOSITION: Home 09/08/2017. Total time preparing and coordinating discharge is 35 minutes.
== END 2017-09-08 20:19 | disposition home or self-care (01) | DRG 291 ==
LOC: ERS 13:25 → IMCU/EMU 15:45 → 2NO 09-07 17:29
PROVIDERS: ADMIT Internal Medicine; ATTEND Internal Medicine
DX: I13.0 Hypertensive heart and chronic kidney disease with heart failure and stage 1 through stage 4 chronic kidney disease, or unspecified chronic kidney disease (principal); J96.21 Acute and chronic respiratory failure with hypoxia; N17.9 Acute kidney failure, unspecified; E11.22 Type 2 diabetes mellitus with diabetic chronic kidney disease; I44.1 Atrioventricular block, second degree; I27.81 Cor pulmonale (chronic); I50.33 Acute on chronic diastolic (congestive) heart failure; J44.1 Chronic obstructive pulmonary disease with (acute) exacerbation; I24.8 Other forms of acute ischemic heart disease; N18.3 Chronic kidney disease, stage 3 (moderate); I25.10 Atherosclerotic heart disease of native coronary artery without angina pectoris; Z87.891 Personal history of nicotine dependence
CPT/HCPCS: 36415; 36416; 71045; 80048; 80053; 80076; 82553; 82805; 83880; 84484; 85007; 85025; 85027; 90471; 90670; 90682; 93005; 93306; 93798; 94640; 94660; 94760; 96372; 96374; 96375; A4216; G0008; G0009; J0456; J0696; J1650; J1940; J2920; J7050; J7506; J7620; Q2036

== ENCOUNTER 2017-09-21 09:14 | Outpatient (CLI) | payer MEDICARE, OTHER ==
--- NOTE | 2017-09-21 09:58 | RAD ---
CHEST TWO VIEWS: History: Dyspnea. Comparison: 09-07-17 FINDINGS: Mild pulmonary venous congestion. Nodular density in the right lower lung. No pneumothorax. No acute osseous abnormality. IMPRESSION: 1. Nodular density in the right lung base may represent resolving consolidation. 2. Mild hyperinflation. 3. Mild cardiomegaly. POS: [facility]
== END 2017-09-21 09:15 | disposition home or self-care (01) ==
LOC: RAD 09:14
PROVIDERS: ATTEND Internal Medicine Critical Care Medicine
DX: R06.00 Dyspnea, unspecified (principal); I51.7 Cardiomegaly
CPT/HCPCS: 71046

== ENCOUNTER 2017-11-17 14:24 | Inpatient (IN) | payer MEDICARE, OTHER ==
[2017-11-17 15:00] LABS: Hemoglobin 13.4 g/dL (14.0-18.0); Mean Corpuscular HGB CONC 33.4 g/dL (32.0-36.0); Mean Corpuscular Hemoglobin 29.3 pg (27.0-31.0); Mean Corpuscular Volume 87.9 fl (80.0-94.0); Mean Platelet Volume 8.7 fL (7.4-10.4); Platelet Count 279 thou/uL (130-400); RBC Distribution Width 13.9 % (11.5-14.5); Red Blood Cell (RBC) Count 4.57 mill/uL (4.70-6.10); White Blood Cell (WBC) Count 8.4 thou/uL (4.8-10.8)
[2017-11-17 15:12] LABS: ALT (SGPT) 13 U/L (8-55); AST (SGOT) 21 U/L (5-34); Albumin 4.5 g/dL (3.4-4.8); Alkaline Phosphatase 58 U/L (40-150); Anion Gap 26 mmol/L (10-20); BUN (Urea Nitrogen) 88 mg/dL (8.4-25.7); Bilirubin, Total 0.7 mg/dL (0.2-1.2); CK (CPK) 317 U/L (30-200); Calc. Creatinine Clearance 0 mL/min (70-130); Calcium 9.2 mg/dL (7.8-10.44); Carbon Dioxide 22 mmol/L (23-31); Chloride 89 mmol/L (98-107); Estimated GFR-MDRD 11; Globulin 3.9 g/dL (2.4-3.5); Glucose 194 mg/dL (80-115); Lipase 10 U/L (8-78); Potassium 4.5 mmol/L (3.5-5.1); Protein, Total 8.4 g/dL (5.8-8.1); Sodium 132 mmol/L (136-145)
[2017-11-17 15:17] LABS: CKMB 4.8 ng/mL (0-6.6); Troponin I 0.073 ng/mL (< 0.028)
[2017-11-17 15:22] LABS: Band 51 % (5-11); Dohle Bodies SLIGHT; Large Platelets SLIGHT; Lymphocytes 9 % (21-51); MDiff Complete? YES; Metamyelocyte 24 % (0-0); Monocytes 6 % (0-10); Neutrophil 7 % (42-75); PLT Morphology Comment Appears Adequate; Polychromasia SLIGHT = 2-3 cells (100X) (0-2/hpf); Reactive Lymphocytes 3 % (0-10); Reflex for Review?? YES; Vacuoles MODERATE
--- NOTE | 2017-11-17 15:34 | CT ---
CT ABDOMEN AND PELVIS WITHOUT CONTRAST 11/17/17 Multiple axial tomograms obtained through the abdomen and pelvis without IV enhancement. INDICATIONS: Abdominal pain and distention. No comparison studies. FINDINGS: Lung bases clear. Liver, spleen, pancreas unremarkable. Adrenal glands and kidneys unremarkable. There is significant small bowel dilatation with fluid filled dilated loops of proximal and mid small bowel. The small bowel loops measure up to 4 cm indicating a high grade obstructive process. There i s a large right inguinal hernia with small bowel loops herniated into the inguinal ring and this appe ars to be site of the small bowel obstruction. The right colon also herniates into this inguinal ring and the obstruction appears to be at the ileocecal junction. There is evidence of associated large r ight hydrocele in the scrotum and inguinal canal. Aorta is normal caliber. IMPRESSION: A large right inguinal hernia. Small bowel and right colon herniated into the inguinal ring. This is producing a relatively high grade small bowel obstruction. POS: [facility]
[2017-11-17] MEDS ORDERED: Levofloxacin 500 mg/D5W 100 ml Premix Bag ONE (16:56)
[2017-11-17] MEDS ORDERED: Lidocaine 1% PF 5 ML VIAL ONE ×2 (17:11→20:07)
[2017-11-17] MEDS ORDERED: Albuterol Sulfate 1.25 MG/3 ML NEB ONE (17:26)
[2017-11-17] MEDS ORDERED: Fentanyl 250 MCG/5 ML VIAL ONE (18:23)
[2017-11-17 18:36] LABS: Lactic Acid 1.5 mmol/L (0.5-2.2)
[2017-11-17] MEDS ORDERED: Midazolam HCl 2 mg/2 ml Vial ONE ×2 (18:49→19:32)
[2017-11-17] MEDS ORDERED: Heparin 10,000 UNITS/1 ML VIAL ONE (19:23)
[2017-11-17] MEDS ORDERED: Sodium Chloride 0.9% 30 ML ONE (19:23)
[2017-11-17] MEDS ORDERED: Albumin 25% 100 ML ONE (19:32)
[2017-11-17] MEDS ORDERED: Phenylephrine HCL 10 MG/ML VIAL ONE (20:05)
[2017-11-17] MEDS ORDERED: Succinylcholine Chloride 20 MG/ML 10 ml SYRINGE FS ONE (20:07)
[2017-11-17] MEDS ORDERED: PHENYLEPHRINE-NS 100 MCG/ML 10 ML SYRINGE ONE (20:07)
[2017-11-17] MEDS ORDERED: Vecuronium 10 MG VIAL ONE ×2 (20:07→20:34)
[2017-11-17] MEDS ORDERED: PROPOFOL 200 MG/20 ML VIAL ONE (20:07)
[2017-11-17] MEDS ORDERED: Sodium Bicarb 50 MEQ/50 ML Abboject 8.4% SYRINGE ONE ×2 (20:07→20:30)
[2017-11-17] MEDS ORDERED: Hetastarch 6% 500 ML 500 ML ONE (20:10)
--- NOTE | 2017-11-17 21:06 | HP ---
HISTORY OF PRESENT ILLNESS: Jasmeet Mcqueen is a 67-year-old black male patient, who has worked for [employer] for many years, now retired and in the emergency room with abdominal distention, castillo sea, and vomiting, evaluated by Dr. Mckinney. He is appreciated on CAT scan noncontrast to have incar cerated right inguinal hernia and bowel obstruction. His abdomen is markedly distended and tympaniti c. His stomach is full. On my arrival, NG tube was placed immediately returning of abundant amount of fecal material with continuous suction. A Estrada catheter was in place. The patient states he has not urinated much in the last 4 days. He has not had a bowel movement in four days. He has known t hat he had a right inguinal hernia in the past, but has never been a problem with incarceration previ ously. He notes that Dr. Muhammad discussed his inguinal hernia with him when he was here 2 months ago f or COPD exacerbation. The patient states he stopped smoking in 2011 when he had a myocardial infarct ion. Recent hospitalization 2 months ago for COPD exacerbation resulting in a discharge with home ox ygen and steroid taper, which he has completed. He uses oxygen continuously at home. He uses nebuli zers at home. The patient has a known history of diabetes, hypertension, COPD, and coronary artery d isease. He was evaluated by cardiac surgery in 2011, thought to be a poor candidate for coronary byp ass grafting for 3-vessel coronary disease because of his COPD. Patient on this admission is noted t o have a white count of 8, hemoglobin of 13, sodium 132, potassium 4.5, carbon dioxide of 22, chlorid e of 89, BUN 88, creatinine 6.4, GFR of 11. His lactic acid is 2.4. I have made efforts to reduce h is hernia at the bedside, but I am unable to do so. On arrival to the emergency room, his blood pres sure was 70, but with hydration has improved to 110 to 120. He is receiving IV fluid boluses now. I reassured his nurse that these can be administered 2 liters of saline as ordered. He will continue maintenance fluids 150 an hour. Plan is to go to the operating room repair of his incarcerated right inguinal hernia. The patient and family understand that he may need a laparotomy or bowel resection . They understand postoperatively, he will be in ICU on the ventilator. I have called Dr. Hernandez, who is covering for Dr. Lowry, Dr. Cevallos, who is covering for Dr. Muhammad and notify Dr. Zavala of the pa antonio's acute renal failure. We will plan to place a hemodialysis catheter in case he needs dialysis postoperatively. We will place a central line to protect his veins in case he needs future dialysis . He was noted to have a creatinine of 1.29 in 09/24/2014 and 1.93 in 08/2017, crystal to 2.29 on 09/06 and discharge 11/12/2017 with creatinine of 1.64. He has chronic hypertension and diabetes.. ALLERGIES: None. TOBACCO: None since 2011, abuse prior to that. ALCOHOL: None. MEDICATIONS: List includes completing a prednisone taper. Metformin 1000 mg a.m., metformin 500 mg q.p.m. with meals. Spironolactone 12.5 mg a day, inhaler 2 puffs INH b.i.d., mometasone, formoterol 200/5, Dulera 200 mcg/5, losartan 25 mg a day, lisinopril 20 mg b.i.d., Lasix 40 mg a day a.c., Plavi x 75 mg a day, carvedilol 25 mg b.i.d., Zithromax completed, Lipitor 20 mg at bedtime, amlodipine 5 m g a day, and albuterol 90 mcg a day. PAST MEDICAL HISTORY: 1. COPD, steroid taper recently, home oxygen dependent recently started earlier this year, post-COPD exacerbation in hospitalization. Tobacco cessation 2012 after [place]. 2. Coronary disease, status post myocardial infarction in 2011, catheterization with three-vessel co ronary disease felt to be a poor candidate for coronary bypass grafting by Cardiac Surgery evaluated him recently seen by Dr. Muhammad, recent hospitalization earlier this year with echocardiogram 45% to 50 % ejection fraction, mild tricuspid regurgitation. He has been asymptomatic from coronary standpoint treated medically. 3. Diabetes mellitus. 4. Hypertension. 5. History of right inguinal hernia. 6. History of myocardial infarction in 2011. PAST SURGICAL HISTORY: Noncontributory. SOCIAL HISTORY: Patient is retired [employer]. ILLEGAL DRUG USE: None. ALCOHOL: None. PHYSICAL EXAMINATION: VITAL SIGNS: 77 kilograms, satting admission, now 110/70, heart rate 61, temperature 98.7 degr ees. GENERAL: The patient is breathing normally and does not appear to be in distress. LUNGS: Clear to auscultation, without wheezing. CARDIAC: Regular rate and rhythm without murmur. ABDOMEN: Distended, tympanitic, markedly protuberant, incarcerated right inguinal hernia that I neo ot reduce with him supine and with his knees and hips flexed and with him in frog leg position. EXTREMITIES: Without edema, palpable radial pulses. LABORATORY DATA: Sodium 132, potassium 4.5, chloride 89, carbon dioxide 22, BUN 88, creatinine 6.43, GFR 11. Lactate 2.4. White count 8, hemoglobin 13. ASSESSMENT AND PLAN: 1. Incarcerated right inguinal hernia with bowel obstruction. NG tube placed and placed to suction, 18 Korean to 75 cm. Estrada catheter will be placed. The patient will continue to be hydrated. Plan right inguinal hernia repair with mesh, possible laparotomy and indicated procedures 2. Acute renal failure superimposed on chronic renal failure have consulted Dr. Zavala. We will low n placement of a dialysis catheter in the operating room. 3. I will plan placement of a central line. 4. Chronic obstructive pulmonary disease on home oxygen and steroid coverage. Consult Dr. Hernandez, he is covering for Dr. Lowry. 5. Coronary artery disease, stable. Consult Dr. Cevallos. 6. Acute renal failure as noted above. 7. Dehydration. Blood pressure improved with hydration, continue hydration. 8. Hypertension.
[2017-11-17] MEDS ORDERED: Dextrose 5% in Water 1,000 ML IV PRN ×2 (21:14→21:24)
[2017-11-17] MEDS ORDERED: Dextrose 50% Abboject 50 ML SYRINGE SLOW IVP PRN ×2 (21:14→21:24)
[2017-11-17] MEDS ORDERED: Ventilator Sedation Protocol 1 EACH FS SCH (21:30)
[2017-11-17] MEDS ORDERED: Lorazepam 2 MG/ML VIAL SLOW IVP PRN (21:32)
[2017-11-17] MEDS ORDERED: fentaNYL Citrate/PF 2,000 MCG in Sodium Chloride 0.9% 60 ML IV SCH (21:32)
[2017-11-17] MEDS ORDERED: Propofol BOLUS 1,000 MG/100 ML VIAL IV PRN (21:32)
[2017-11-17] MEDS ORDERED: Propofol 1,000 MG/100 ML VIAL IV PRN (21:32)
[2017-11-17] MEDS ORDERED: Fentanyl BOLUS 250 ML IVPB PRN (21:32)
[2017-11-17] MEDS ORDERED: DISCONTINUE PREVIOUS NARCOTIC PAIN MEDICATIONS AND BENZODIAZEPINES FS SCH (21:32)
[2017-11-17] MEDS ORDERED: Hydrocortisone Sod Succ/PF 100 mg/2 ml Vial IVP SCH (21:45)
[2017-11-17] MEDS ORDERED: Sodium Chloride 0.9% 1,000 ML IV SCH (21:45)
[2017-11-17] MEDS: Sodium Chloride 0.9% 1,000 ML IV SCH (21:59)
--- NOTE | 2017-11-17 22:06 | RAD ---
CHEST ONE VIEW 11/17/17 HISTORY: 67-year-old male with history of COPD and respiratory distress. Right dual lumen venous access catheter. Left jugular venous catheter with tip in the upper superior vena cava. NG tube and endotracheal tube in satisfactory location. No evidence for pneumothorax or ot her significant acute intrathoracic disease. IMPRESSION: NG tube, endotracheal tube, and left jugular venous catheters in satisfactory position without compli cation. Right dual lumen venous access catheter. No evidence for significant acute intrathoracic dise ase. Mild increased markings bilaterally which are actually improved from the prior study of 09/07/17. POS: [facility]
[2017-11-17 22:32] LABS: Actual Bicarbonate (HCO3a) 19.8 mEq/L (22-26); Base Excess (BEa) -5.2 mEq/L (0 (+/-) 2.5); CO2 Tension 36.5 mmHg (35.0-45.0); Hematocrit-ABG 28.4 % (42.0-52.0); Hemoglobin (Hb) 8.3 g/dL (14.0-18.0); pH, Arterial 7.35 (7.35-7.45)
[2017-11-17 22:33] LABS: ALV-art Gradient 135.575 (0-20); Calcium, Ionized 0.9 mmol/L (1.12-1.30); Puncture Site LINE
[2017-11-17 22:56] VITALS: BMI 23.8
[2017-11-18] MEDS: Hydrocortisone Sod Succ/PF 100 mg/2 ml Vial IVP SCH ×5 (00:27→23:49)
[2017-11-18] MEDS: Albumin 25% 25 GM/100 ML BOT IVPB SCH ×3 (00:27→11:05)
[2017-11-18] MEDS: HumaLOG 300 UNITS/3 ML VIAL SC PRN ×3 (01:00→12:31)
--- NOTE | 2017-11-18 01:49 | OP ---
DATE OF PROCEDURE: 11/17/2017 PREOPERATIVE DIAGNOSES: Incarcerated right inguinal hernia, chronic kidney disease with acute renal failure, small-bowel obstruction, chronic obstructive pulmonary disease. PROCEDURE: Right IJ cuffed tunnel dialysis catheter, left IJ triple lumen catheter. Fluoroscopy use d, replacement. PHS repair of right inguinal hernia, reduction of the cecum, appendix, and ileum. SURGEON: Dr. Quan Parson. ANESTHESIA: General. ESTIMATED BLOOD LOSS: Less than 10 mL. PROCEDURE IN DETAIL: Patient taken to the operating room where under general anesthesia, neck, chest , abdomen, scrotum, penis prepared with ChloraPrep, draped in routine fashion. Ultrasound was attemp cathy to be used, but would not work. Right and left thigh internal jugular veins were cannulated with a trocar catheter. J-wire was threaded. Trocar catheter removed. Skin incised and enlarged sharpl y, dilating bilaterally over the J-wire entrance site and over the stab incision right chest at the h emodialysis catheter exit site. Using the tunneling device, the precurved angiodynamics cuffed tunne l hemodialysis catheter tunneled between the two incisions, placing the fabric cuff beneath the kaylyn ter exit site and catheter secured with 2 interrupted sutures of 3-0 nylon. Biopatch sterile dressin g applied. Smaller medium-sized dilators placed over the J-wire into the right internal jugular vein removed. Dilator and pull-away sheath placed over the J-wire into the superior vena cava and dilato r and J-wire removed. Catheter placed through pull-away sheath. Pull-away sheath removed. Platysma approximated with 4-0 Monocryl, skin with subdermal 4-0 Monocryl. Fluoroscopy revealed good line pl acement. Each port aspirated blood and flushed with saline solution and heparinized saline solution 1000 units heparin per mL indicated volume of the port. Sterile dressings applied after platysma deborah roximated with 4-0 Monocryl, skin with subdermal 4-0 Monocryl. Seldinger technique used to place a left IJ triple lumen catheter securing with 3-0 nylon suture. Bi opatch sterile dressing applied. Each port aspirated blood and flushed with saline solution. Fluoro scopy revealed good line placement. Attention was then turned to the right groin. Incision made in the right groin and carried down thro [facility] skin and subcutaneous tissue to the external oblique, incising it in the direction of fibers to t he external ring. There was a large incarcerated right inguinal hernia. It seemed to the scrotum. Hernia sac dissected free, opened, and terminal ileum, cecum, and appendix reduced in the abdominal c avity. Hernia sac closed with a pursestring suture of 3-0 Vicryl. Hernia sac excised. Prior to casey sing that there was one aspect of the ileum that had a fibrotic wall partial thickness, I mean, of on e-third of the circumference. This was oversewn with interrupted Lembert suture of 3-0 silk and then the bowel reduced as described and hernia sac closed as described. PHS mesh underlay portion placed in the preperitoneal space and onlay portion placed in the floor of the canal and a slit made in the mesh laterally connecting ring, brought around the cord structures securing the mesh laterally to Po upart's ligament with interrupted suture of 0 Nurolon. Mesh secured up and down Poupart's ligament w ith 0 Nurolon suture. Inferiorly, the mesh secured to Stephen's ligament, 3 sutures 0 Nurolon. Exter nal oblique closed with 3-0 Monocryl. Cord structure has been dissected free and kept free of harm a s much as possible. Wound irrigated, good hemostasis noted. Subcutaneous tissues approximated with 3-0 Monocryl, skin with subdermal 4-0 Monocryl, and DermaGlue applied.
--- NOTE | 2017-11-18 02:17 | CON ---
DATE OF CONSULTATION: 11/17/2017 CONSULTING PHYSICIAN: Dr. Parson. REASON FOR CONSULTATION: Acute kidney injury. REASON FOR ADMISSION: Nausea, vomiting, and abdominal distention. HISTORY OF PRESENT ILLNESS: This is a 67-year-old male who is admitted with abdominal disten tion, nausea, and vomiting and had an emergent surgery by Dr. Parson. He was found to have a creatin ine of 6.43. His last creatinine was 1.6 six days back and the patient is currently intubated in ICU postop. Family was at the bedside. Most of the history was obtained from the review of the records . The patient did have a hemodialysis catheter also, placed by the surgeon in anticipation for need of dialysis in the next few days. The patient is making minimal amount of urine. He is hypotensive. He is also getting started on pressors. PAST MEDICAL HISTORY: Possible chronic obstructive pulmonary disease, coronary artery disease, type 2 diabetes, hypertension, inguinal hernia, myocardial infarction. PAST SURGICAL HISTORY: No surgical history. HOME MEDICATIONS: Include prednisone, Glucophage, Dulera, Cozaar, lisinopril, Lasix, clopidogrel, Li pitor, amlodipine, and Ventolin. ALLERGIES: No known drug allergies. SOCIAL HISTORY: No smoking, alcohol or illicit drug abuse. FAMILY HISTORY: No history of any kidney disease. REVIEW OF SYSTEMS: The following complete review of systems was negative, unless otherwise mentioned in the HPI or below: Constitutional: Weight loss or gain, ability to conduct usual activities. Sk in: Rash, itching. Eyes: Double vision, pain. ENT/Mouth: Nose bleeding, neck stiffness, pain, te nderness. Cardiovascular: Palpitations, dyspnea on exertion, orthopnea. Respiratory: Shortness of breath, wheezing, cough, hemoptysis, fever or night sweats. Gastrointestinal: Poor appetite, abdom inal pain, heartburn, nausea, vomiting, constipation, or diarrhea. Genitourinary: Urgency, frequenc y, dysuria, nocturia. Musculoskeletal: Pain, swelling. Neurologic/Psychiatric: Anxiety, depressio n. Allergy/Immunologic: Skin rash, bleeding tendency. PHYSICAL EXAMINATION: GENERAL: This is a well-built male, in no apparent distress. VITAL SIGNS: Temperature 98.7, pulse 61, respiratory rate 18, blood pressure was 75/41 on arrival. HEENT: Atraumatic, normocephalic and intubated. CARDIOVASCULAR: S1, S2 heard. RESPIRATORY: Clear anteriorly. GASTROINTESTINAL: Abdomen is soft. MUSCULOSKELETAL: No tenderness. No edema. DERMATOLOGIC: Dry skin. NEUROLOGICAL: Intubated and sedated. LABORATORY DATA: Hemoglobin is 13.4, potassium is 4.5, BUN is 88, creatinine is 6.4. ASSESSMENT AND PLAN: 1. Acute kidney injury on chronic kidney disease, stage 3, most likely from volume depletion and pos sible acute tubular necrosis. Agree with hydration and pressor support for now. Keep systolic more than 90. We will monitor renal function. No acute indication for dialysis. 2. Mild acidosis. Monitor closely. 3. Hyponatremia, which is also mild. 4. Hemoconcentration. Continue IV fluids. Continue supportive care and pressor support. Keep systolic more than 90. Monitor renal function, u rine output and electrolytes. We will continue to follow. Avoid nephrotoxins. Renally dose all the medicines and we will continue to follow. Thank you for the consult.
[2017-11-18] MEDS ORDERED: Prevnar 13-Val Conj/PF 0.5 ML SYRINGE IM ONE (02:30)
[2017-11-18] MEDS: Morphine 4 MG/ML VIAL SLOW IVP PRN ×3 (03:34→12:19)
[2017-11-18] MEDS: Sodium Chloride 0.9% 1,000 ML IV SCH ×4 (03:49→23:49)
[2017-11-18 05:19] LABS: Anion Gap 17 mmol/L (10-20); BUN (Urea Nitrogen) 85 mg/dL (8.4-25.7); Calc. Creatinine Clearance 17 mL/min (70-130); Calcium 6.5 mg/dL (7.8-10.44); Carbon Dioxide 19 mmol/L (23-31); Chloride 102 mmol/L (98-107); Estimated GFR-MDRD 15; Glucose 174 mg/dL (80-115); Potassium 4.1 mmol/L (3.5-5.1); Sodium 134 mmol/L (136-145)
[2017-11-18 05:45] LABS: Anisocytosis SLIGHT = 6-15 cells (100X) (0-5/hpf); Band 66 % (5-11); Hemoglobin 8.3 g/dL (14.0-18.0); Lymphocytes 3 % (21-51); MDiff Complete? YES; Mean Corpuscular HGB CONC 32.5 g/dL (32.0-36.0); Mean Corpuscular Hemoglobin 28.8 pg (27.0-31.0); Mean Corpuscular Volume 88.8 fl (80.0-94.0); Mean Platelet Volume 8.2 fL (7.4-10.4); Metamyelocyte 11 % (0-0); Monocytes 7 % (0-10); Neutrophil 13 % (42-75); Ovalocytes SLIGHT = 2-5 cells (100X) (0-1/hpf); PLT Morphology Comment Appears Adequate; Platelet Count 167 thou/uL (130-400); Red Blood Cell (RBC) Count 2.88 mill/uL (4.70-6.10); White Blood Cell (WBC) Count 6.1 thou/uL (4.8-10.8)
[2017-11-18 07:10] LABS: Puncture Site ALINE
[2017-11-18 07:13] LABS: ALV-art Gradient 142.425 (0-20); Actual Bicarbonate (HCO3a) 17.6 mEq/L (22-26); Base Excess (BEa) -7.5 mEq/L (0 (+/-) 2.5); CO2 Tension 33.9 mmHg (35.0-45.0); Hematocrit-ABG 25.3 % (42.0-52.0); Hemoglobin (Hb) 7.5 g/dL (14.0-18.0); O2 Tension (PaO2) 100.4 mmHg (80.0-100.0); pH, Arterial 7.33 (7.35-7.45)
[2017-11-18 07:14] LABS: Calcium, Ionized 0.9 mmol/L (1.12-1.30)
--- NOTE | 2017-11-18 07:44 | RAD ---
FLUOROSCOPIC VIEW OF CHEST: Date: 11/17/17 INDICATION: Fluoroscopy performed during surgical procedure. FINDINGS/IMPRESSION: Single AP fluoroscopic view reveals a dual lumen central line via the right jugular with tip overlyin g the upper SVC. A second left jugular line is also in place overlying the SVC; however, the tip of t his second line is not imaged on this exam. A NG tube is in place with the tip not imaged. An ET tube is in place. POS: [facility]
--- NOTE | 2017-11-18 10:06 | RAD ---
CHEST 1 VIEW: Date: 11/18/17 HISTORY: Dyspnea. Follow-up. COMPARISON: 11/17/17. FINDINGS: Cardiac silhouette magnified by projection. Pulmonary vasculature is slightly more engorged. Mediasti num midline. Lines and tubes appear unchanged in position. No evidence of pneumothorax. IMPRESSION: Slight interval increase in pulmonary vascular congestion. Findings otherwise stable. POS: [facility]
[2017-11-18] MEDS: Famotidine 40 MG/4 ML VIAL SLOW IVP SCH (10:24)
--- NOTE | 2017-11-18 11:24 | CON ---
DATE OF CONSULTATION: 11/18/2017 REASON FOR CONSULTATION: Coronary artery disease. PRIMARY TOP LIFT TRIMMER: Georgina Muhammad M.D. HISTORY OF PRESENT ILLNESS: Mr. Mcqueen is a pleasant 67-year-old gentleman who come s to the hospital for abdominal pain. He was diagnosed with an incarcerated hernia and was taken to the OR yesterday by Dr. Eb walker. Cardiology has been consulted as he has a history of is chemic cardiomyopathy, last EF was about 45%-50%. He has inoperable coronary artery disease. He als o has severe COPD. On my evaluation this morning, he is awake, off sedation, about to start a CPAP t rial. He did have few episodes of high degree AV block earlier today. He had about a 3 second pause and then a 6 second pause. These were just a single lead and I am unable to see more than one lead to see if this was just the lead coming off and this being artifact. Currently, he is in sinus rhyth m in the 80s. PAST MEDICAL HISTORY: 1. Type 2 diabetes. 2. Hypertension. 3. Coronary artery disease, multivessel, severe, inoperable disease. 4. Chronic obstructive pulmonary disease. 5. History of myocardial infarction in 2011. OUTPATIENT MEDICATIONS: 1. Zithromax 500 mg a day recently. 2. Atorvastatin 20 mg at bedtime. 3. Amlodipine 5 mg a day. 4. Albuterol inhaler p.r.n. 5. Lasix 40 mg a day. 6. Plavix 75 mg a day. 7. Carvedilol 25 mg b.i.d. 8. Dulera inhaler. 9. Losartan 25 mg a day. 10. Metformin 1000 mg in the morning and 500 mg in the evening. 11. Spironolactone 12.5 mg a day. ALLERGIES: No known drug allergies. SOCIAL HISTORY: Former smoker. No alcohol or drug use. FAMILY HISTORY: Noncontributory for this setting. REVIEW OF SYSTEMS: Unobtainable as the patient remains intubated. PHYSICAL EXAMINATION: VITAL SIGNS: Temperature 97.2, pulse 94, respiratory rate 20, satting 95% on 35% FiO2, blood pressur e 127/69. GENERAL: Awake and alert. He is intubated, but following commands, tracking with his eyes. HEENT: Normocephalic, atraumatic. NECK: Supple. LUNGS: Reduced breath sounds bilaterally. CARDIOVASCULAR: S1, S2, no S3, S4, no murmurs. ABDOMEN: Soft, positive bowel sounds. EXTREMITIES: No edema. SKIN: Warm and dry. LABORATORY DATA: CBC, ABGs and chemistries were reviewed. Creatinine is above baseline at 6.4 yeste rday, down to 4.7 today. BNP was 20. IMAGING: Most recent echocardiogram on the 09/04 showed an EF of 45%-50%. ASSESSMENT: 1. Incarcerated hernia, status post repair. 2. Acute kidney injury on chronic kidney disease. 3. Chronic obstructive pulmonary disease without exacerbation. 4. Multivessel coronary artery disease, inoperable, stable at this time. 5. Ischemic cardiomyopathy, EF at 45%-50%. 6. High degree AV block, possibly we will try to get hold of better tracings to see if there was oxana lly just a loss of contact with the electrode versus actual pauses. PLAN 1. Continue supportive care. 2. Cardiovascular issues at this time seems to be stable except for the possibility of the pauses. This could be related to high vagal tone from the abdominal surgery. We will plan on stopping the me toprolol. Continue to monitor for now. If it recurs, he will need a pacemaker to be placed; however , at this time he is doing just well. Thank you for letting us to participate in the care of your patient.
--- NOTE | 2017-11-18 12:32 | CON ---
DATE OF CONSULTATION: 11/18/2017 HISTORY OF PRESENT ILLNESS: Mr. Jasmeet Mcqueen is a 67-year-old gentleman who sees Dr. Lowry. He was seen yesterday with abdominal pain and he was found to have incarcerated hernia. Dr. Parson took him to surgery. His renal function is poor, dialysis catheter inserted. He presently intubated on the vent with a pulse of 90, blood pressure is 113/56, sats at 98%. He is awake, responsive. He has severe COPD. He has been admitted many times. His baseline FEV1 is only 740 mL, severe COPD. PAST MEDICAL HISTORY: COPD, diabetes, hypertension, coronary artery disease, previous VT. PAST SURGICAL HISTORY: None, until recently laparotomy. SOCIAL HISTORY: Tobacco, smokes until 2011 and he quit. No alcohol. MEDICATIONS: At home includes diabetic medicine, Glucophage 1000 once a day, metformin 500 mg nightl y, spironolactone 12.5, Dulera, Cozaar 25, Lasix 40, Plavix 75, Coreg 25 b.i.d., Lipitor 25, amlodipi ne 5. He is now started on nebulizer treatment, Pepcid, , Hydrocortisone and vasopressin. ALLERGIES: None. REVIEW OF SYSTEMS: Otherwise, 10-point negative. PHYSICAL EXAMINATION: VITAL SIGNS: His saturations are 97% on the vent, pulse 90, blood pressure 108/84, temperature 99.5. CHEST: Decreased breath sounds, no wheezing. CARDIAC: Normal S1, S2, no gallops. ABDOMEN: Soft, distended. EXTREMITIES: No edema. NEUROLOGIC: He is awake and responsive. LABORATORY DATA: White count is 6000, H&H is 8 and 25, platelet count 167. He has got 66 bands, 30 neutrophils. PO2 is 100, pCO2 on a rate of 18, 40%. Creatinine is 4.7, BUN is 85. His baseli ne creatinine is about 1.98. He has got good urine output. BNP was normal. IMPRESSION: 1. End-stage chronic obstructive pulmonary disease. 2. Incarcerated right inguinal hernia, status post surgery. 3. Chronic renal failure, worsening renal status. 4. Diabetes. PLAN: Hold sedation. Hopefully, we will try and wean. is at the bedside. In the meantime, nebulizer treatments, antibiotics, steroids. We will follow. Forty-five minutes critical care time. We will reassess the situation once all sedation is off.
[2017-11-18] MEDS ORDERED: Morphine 4 MG/ML Carpuject SLOW IVP PRN (13:30)
[2017-11-18] MEDS ORDERED: Morphine 4 MG/ML VIAL IV PRN (13:36)
--- NOTE | 2017-11-18 14:56 | PRG ---
DATE OF SERVICE: 11/18/2017 SUBJECTIVE: Richar is doing well postoperative yesterday, incarcerated right inguinal hernia with re duction of small-bowel obstruction, placement of hemodialysis catheter and central line. He was extu bated this morning by Dr. Hernandez. Patient last night had long pauses and Dr. Cevallos has seen him. He may need a pacemaker in the future. OBJECTIVE: VITAL SIGNS: Heart rate 95, blood pressure 129/69. GENERAL: Patient is resting, breathing comfortably. LUNGS: Clear to auscultation, no wheezing. CARDIAC: Regular rate and rhythm. ABDOMEN: Soft, distended, protuberant, quiet abdomen. No flatus, no stool. EXTREMITIES: Surgical wound right groin looks good, clean, dry. Ankle looks without edema. LABORATORY DATA: White count 6, hemoglobin 8.3, sodium 134, potassium 4.1, BUN 85, CO2 of 19, creati nine is 4.78, GFR 15. Patient is diuresing copiously. Fluids at 150 per hour of saline. ASSESSMENT AND PLAN: Awaiting bowel function. Continue NG tube for now. NG tube is in proper posit ion radiologically, but only has put out 150 mL. Urine output has increased to 1090 today. We will decrease his IV fluids, continue to monitor his renal function. As he is extubated today, we will mo ve towards getting him up in the chair and using incentive spirometer. He can have ice chips and sip s of water, continue the NG tube.
--- NOTE | 2017-11-18 15:08 | PRG ---
DATE OF SERVICE: 11/18/2017 SUBJECTIVE: Patient was seen and examined at bedside and overnight events noted. Patient denies any shortness of breath or chest pain or palpitation. No history of nausea or vomiting or diarrhea or f ever or chills or cramps. OBJECTIVE: GENERAL: This is a well-built male, in no acute distress VITAL SIGNS: Temperature 99.5, pulse 95, respiratory , blood pressure 120/69. HEENT: Atraumatic, normocephalic. Oral mucosa is moist NECK: Supple. CARDIOVASCULAR: S1, S2 heard. Rate and rhythm regular RESPIRATORY: Clear to auscultation GASTROINTESTINAL: Abdomen is soft MUSCULOSKELETAL: No tenderness, No edema DERMATOLOGIC: No skin rash NEUROLOGIC: Alert and awake and oriented x3. No focal neurologic deficits. Moving all the extremiti es. PSYCHIATRIC: Mood and affect normal. LABORATORY DATA: Potassium is 4.1, BUN 85, creatinine is 4.7. ASSESSMENT AND PLAN: 1. Acute kidney injury on chronic kidney stage 3, and renal function with hydration. Continue supportive care and IV hydration with close monitoring. The patient was extubated this morning. 2. Hyponatremia. 3. Metabolic acidosis. Continue IV fluids. 4. Edema, controlled. 5. Plan is to continue on IV fluids. Avoid nephrotoxins. Renal dose all the medicines. No acute i ndication for dialysis. 6. Anemia with acute drop in hemoglobin and rule out bleed with close monitoring.
[2017-11-18] MEDS: Acetaminophen 1,000 MG in Premix Bag 1 BAG IVPB SCH ×2 (17:29→23:48)
[2017-11-19 05:00] LABS: ALT (SGPT) 9 U/L (8-55); AST (SGOT) 14 U/L (5-34); Albumin 3.6 g/dL (3.4-4.8); Alkaline Phosphatase 39 U/L (40-150); Anion Gap 15 mmol/L (10-20); BUN (Urea Nitrogen) 75 mg/dL (8.4-25.7); Bilirubin, Total 0.4 mg/dL (0.2-1.2); Calc. Creatinine Clearance 22 mL/min (70-130); Calcium 7.1 mg/dL (7.8-10.44); Carbon Dioxide 22 mmol/L (23-31); Chloride 107 mmol/L (98-107); Estimated GFR-MDRD 20; Globulin 2.2 g/dL (2.4-3.5); Glucose 168 mg/dL (80-115); Potassium 4.3 mmol/L (3.5-5.1); Protein, Total 5.8 g/dL (5.8-8.1); Sodium 140 mmol/L (136-145)
[2017-11-19 05:02] LABS: Band 49 % (5-11); Hemoglobin 8.7 g/dL (14.0-18.0); Lymphocytes 13 % (21-51); MDiff Complete? YES; Mean Corpuscular HGB CONC 32.1 g/dL (32.0-36.0); Mean Corpuscular Volume 90.4 fl (80.0-94.0); Mean Platelet Volume 8.3 fL (7.4-10.4); Monocytes 1 % (0-10); Neutrophil 37 % (42-75); PLT Morphology Comment Appears Adequate; Platelet Count 197 thou/uL (130-400); RBC Distribution Width 14.2 % (11.5-14.5); Red Blood Cell (RBC) Count 2.98 mill/uL (4.70-6.10); White Blood Cell (WBC) Count 9.6 thou/uL (4.8-10.8)
[2017-11-19] MEDS: Acetaminophen 1,000 MG in Premix Bag 1 BAG IVPB SCH ×3 (06:19→17:40)
[2017-11-19] MEDS: Hydrocortisone Sod Succ/PF 100 mg/2 ml Vial IVP SCH ×3 (06:20→17:40)
--- NOTE | 2017-11-19 08:48 | RAD ---
PORTABLE AP CHEST: Date: 11/19/17 HISTORY: COPD. Patient on ventilator. Follow-up evaluation. COMPARISON: 11/18/17. FINDINGS: The tunneled right internal jugular vein hemodialysis catheter, left internal jugular vein central ve nous catheter, and nasogastric tubes remain in place and unchanged in position. The endotracheal tube is not well visualized on this exam and may have been removed in the interim. Cardiac silhouette is magnified by projection. Pulmonary vasculature is at the upper limits of normal. There is mild bibasi lar atelectasis. IMPRESSION: 1. Pulmonary vasculature is borderline increased. 2. Endotracheal tube is not definitely identified and may have been removed in the interim. Remainin g lines and tubes are stable in position. POS: [facility]
[2017-11-19] MEDS: Famotidine 40 MG/4 ML VIAL SLOW IVP SCH (09:37)
--- NOTE | 2017-11-19 11:08 | PDOC.CTH ---
<Eve Merino - Last Filed: 11/19/17 11:04> Cardiology Progress Note - Subjective The pt seen and examined. No overnight events. No cardiac complaints. He walked for more than 200 fts today with PTs. - Objective Vital Signs Temp Pulse Resp Pulse Ox 11/19/17 08:00 98.2 F 84 26 H 96 11/19/17 07:08 84 26 H 100 11/19/17 07:00 98.2 F 11/19/17 04:00 97.9 F 11/19/17 02:42 88 20 100 11/19/17 00:00 98.1 F Weight 175 lb 11.335 oz 11/18/17 11/19/17 11/20/17 06:59 06:59 06:59 Intake Total 1298 1498 120 Output Total 615 4399 395 Balance 749 -0077 -145 - Physical Examination General/Neuro: alert & oriented x3 Neck: no JVD present Lungs: CTA Heart: RRR Abdomen: soft Extremities: other: (No edema) - Telemetry Telemetry Rhythm: SR 90s - Labs Result Diagrams: 11/19/17 04:14 11/19/17 04:14 Troponin/CKMB CK-MB (CK-2) 4.8 ng/mL (0-6.6) 11/17/17 14:52 Troponin I 0.073 ng/mL (< 0.028) H 11/17/17 14:52 - Assessment/Plan 1. S/p Incarcerated Rt inguinal hernia with reduction of small bowel obstruction and HD cath placement on 11/17/17 - stable; Still NG tube in place; managed by surgeon 2. 3V CAD with hx of [place] in 2011 - stable; the pt is not a good candidate due to severe COPD; cont. to monitor on tele 3. Ischemic CMY with diastolic HF - stable 4. HTN - stable 5. GERMANIA on CKD stage 3 - managed by olive brine tester 6. Hyperlipidemia - Will resume Statin when he is stable 7. DM type 2 - managed by PCP 8. COPD - stable; managed by street engineer 9. Anemia - improving today; cont. to monitor 10. Hyponatremia - better today MAR reviewed * Echo in 08/2017 showed EF 45-50%, mild-mod dilated LA, mild MR, mild TR. Review of Systems - Review of Systems Constitutional: reports: no symptoms reported EENTM: reports: no symptoms reported Respiratory: reports: no symptoms reported Cardiac (ROS): reports: no symptoms reported ABD/GI: reports: no symptoms reported <Jordon Muhammad - Last Filed: 11/19/17 18:00> Cardiology Progress Note - Objective Vital Signs Temp Pulse Pulse Pulse Resp BP BP 11/19/17 15:00 97.9 F 11/19/17 14:59 88 28 H 11/19/17 11:13 94 23 H 11/19/17 11:00 98.6 F 11/19/17 09:37 99 96 142/81 H 132/73 11/19/17 08:00 98.2 F 84 26 H 11/19/17 07:08 84 26 H 11/19/17 07:00 98.2 F Pulse Ox Pulse Ox Pulse Ox 11/19/17 15:00 11/19/17 14:59 98 11/19/17 11:13 96 11/19/17 11:00 11/19/17 09:37 96 96 11/19/17 08:00 96 11/19/17 07:08 100 11/19/17 07:00 Weight 175 lb 11.335 oz 11/18/17 11/19/17 11/20/17 06:59 06:59 06:59 Intake Total 1298 1498 1188 Output Total 717 2933 3853 Balance 683 -2041 -417 - Labs Result Diagrams: 11/19/17 04:14 11/19/17 04:14 Troponin/CKMB CK-MB (CK-2) 4.8 ng/mL (0-6.6) 11/17/17 14:52 Troponin I 0.073 ng/mL (< 0.028) H 11/17/17 14:52 - Assessment/Plan pt. seen and eval. by me. I agree with the A/P by the TELEVISION ANNOUNCER:. Chest: clear. RRR, trace edema.
[2017-11-19] MEDS: HumaLOG 300 UNITS/3 ML VIAL SC PRN (11:33)
--- NOTE | 2017-11-19 11:49 | PRG ---
DATE OF SERVICE: 11/19/2017 SUBJECTIVE: This is a 67-year-old gentleman being seen for acute kidney injury. The patient denies any nausea, vomiting, or chest pain. PHYSICAL EXAMINATION: VITAL SIGNS: Afebrile 97, pulse 93, breathing 16, blood pressure 139/76. OBJECTIVE: See above. Awake, alert, in no acute distress. GENERAL APPEARANCE AND MENTAL STATUS: Fair. HEAD/NECK: Normocephalic. Atraumatic. EYES: EOMI. No deformity. EARS: Clear. No ulcers. NOSE: Intact. No lesions. MOUTH: Clear. No discharge. THROAT: Clear. No exudate. LUNGS: Clear. No crackles. CARDIAC: S1, S2. No rub. ABDOMEN: Benign. BS+. GENITALIA/RECTUM: Estrada absent. BACK/EXTREMITIES: Edema 0+ Ulcer- NEUROLOGICAL: Alert and motor intact. SKIN: Rash- Bruise- LYMPHATICS: Edema- Ulcer- LABORATORY: Hemoglobin 8.7, creatinine 3.7. ASSESSMENT AND RECOMMENDATIONS: 1. Acute kidney injury, improved. 2. Hypertension, stable. 3. Anemia, stable. 4. Metabolic acidosis, stable. No indication for dialysis.
--- NOTE | 2017-11-19 14:57 | PRG ---
DATE OF SERVICE: 11/19/2017 SUBJECTIVE: aJsmeet Mcqueen is doing well off mechanical ventilation. He has no complaints. He says h is abdomen is not bothering him, seem it has been stable. OBJECTIVE: LUNGS: Clear. HEART: Regular rhythm. ABDOMEN: Soft. EXTREMITIES: Without clubbing, cyanosis or edema. LABORATORY DATA: Hemoglobin is 8.7, white count 9.6, platelets 197,000. Sodium 140, potassium 4.3, chloride 107, bicarbonate 22, BUN 75, creatinine 3.77. IMPRESSION: 1. Status post placement of a dialysis catheter. 2. Status post repair of an incarcerated right inguinal hernia. 3. Chronic kidney disease. 4. Chronic obstructive pulmonary disease. 5. History of coronary artery disease. 6. Smoking until he had a myocardial infarction, which led to a cardiac catheterization in 2011. PLAN: Continue supportive care. Appears to be stable at this point in time.
[2017-11-19] MEDS: Sodium Chloride 0.9% 1,000 ML IV SCH (15:35)
--- NOTE | 2017-11-19 16:26 | PQF ---
CLINICAL DOCUMENTATION IMPROVEMENT CLARIFICATION FORM: ICD-10 Updated PLEASE DO AN ADDENDUM TO THE PROGRESS NOTE WITH ANY DOCUMENTATION UPDATES OR ADDITIONS AND CARRY THROUGH TO DC SUMMARY. THANK YOU. DATE: 11/19/17 ATTN: Dr. Parson Please exercise your independent, professional judgment in responding to the clarification form. Clinical indicators are provided on the bottom of this form for your review Please check appropriate box(s): [ ] Chronic Respiratory Failure only [ ] with Hypoxia [ ] Chronic Respiratory Failure only [ ] with Hypercapnia [ ] Other diagnosis [ ] Unable to determine In addition, please specify: Present on Admission (POA): [ ] Yes [ ] No [ ] Unable to determine For continuity of documentation, please document condition throughout progress notes and discharge summary. Thank You. CLINICAL INDICATORS - SIGNS / SYMPTOMS / LABS ER REPORT: RESP 20, O2 SAT 97 ON 2L OXYGEN. H&P: RECENT HOSPITALIZATION 2 MONTHS AGO FOR COPD EXACERBATION HE USES OXYGEN CONTINUOUSLY AT HOME. RISKS: H&P: PMH COPD , STEROID TAPER RECENTLY, HOME OXYGEN DEPENDENT RECENTLY STARTED EARLIER THIS YR. CORONARY DISEASE. DM. HTN. TREATMENT: PULMONARY CONSULT ORDER 11/18: RESP: O2 TO KEEP SATS 92% CPOE 11/17: SOLU-CORTEF 50MG IV Q6 HR CPOE 5/6: DUONEB Q4 HR -RT Thank you, Kdai (This form is maintained as a part of the permanent medical record) 2015 [employer]. All Rights Reserved Kadi Milian RN, BSN [email or web address] Office: [phone] [facility]
--- NOTE | 2017-11-19 21:15 | PRG ---
DATE OF SERVICE: 11/19/2017 SUBJECTIVE: Jasmeet Mcqueen is in the ICU. He has not had any cardiac pauses as he did before. He fee ls better. He has been sitting up in a chair and now he issitting up in bed. He is awake and alert. OBJECTIVE: VITAL SIGNS: Blood [id number]/80, heart rate 98, respiratory rate 26. LUNGS: Clear to auscultation. CARDIAC: Regular rate and rhythm without murmur or gallop. ABDOMEN: Soft, slightly distended, protuberant. Bowel sounds present. Surgical wound, right groin, intact. LABORATORY DATA: White count 9.6, hemoglobin 8.7. Sodium 140, potassium 4.3, BUN 75, creatinine 3.7 7, GFR 20. Bilirubin is normal. Gastric drainage 1150 mL over the past 24 hours. Urine output 2309 . ASSESSMENT AND PLAN: 1. Acute renal failure superimposed on chronic renal failure, improving. Continue IV fluids. Ignacio nue to monitor electrolytes. Nephrology is following. Dialysis not needed so far. 2. Followup reduction and repair of incarcerated right inguinal hernia with bowel obstruction, await ing GI function. Bowel sounds present. Hopefully, GI function resumes so we can remove the NG tube. 3. Chronic obstructive pulmonary disease.
[2017-11-20] MEDS: Sodium Chloride 0.9% 1,000 ML IV SCH ×2 (00:08→09:53)
[2017-11-20] MEDS: Acetaminophen 1,000 MG in Premix Bag 1 BAG IVPB SCH ×3 (00:08→12:37)
[2017-11-20] MEDS: Hydrocortisone Sod Succ/PF 100 mg/2 ml Vial IVP SCH ×3 (00:08→17:42)
[2017-11-20] MEDS: HumaLOG 300 UNITS/3 ML VIAL SC PRN ×3 (00:17→12:37)
[2017-11-20 04:52] LABS: ALT (SGPT) 10 U/L (8-55); AST (SGOT) 13 U/L (5-34); Albumin 3.7 g/dL (3.4-4.8); Alkaline Phosphatase 48 U/L (40-150); Anion Gap 15 mmol/L (10-20); BUN (Urea Nitrogen) 54 mg/dL (8.4-25.7); Bilirubin, Total 0.4 mg/dL (0.2-1.2); Calc. Creatinine Clearance 35 mL/min (70-130); Calcium 7.7 mg/dL (7.8-10.44); Carbon Dioxide 24 mmol/L (23-31); Chloride 111 mmol/L (98-107); Estimated GFR-MDRD 34; Globulin 2.6 g/dL (2.4-3.5); Glucose 165 mg/dL (80-115); Potassium 3.8 mmol/L (3.5-5.1); Protein, Total 6.3 g/dL (5.8-8.1); Sodium 146 mmol/L (136-145)
[2017-11-20 04:54] LABS: Hemoglobin 10.1 g/dL (14.0-18.0); Mean Corpuscular HGB CONC 31.6 g/dL (32.0-36.0); Mean Corpuscular Hemoglobin 28.5 pg (27.0-31.0); Mean Corpuscular Volume 90.3 fl (80.0-94.0); Mean Platelet Volume 8.4 fL (7.4-10.4); Platelet Count 277 thou/uL (130-400); RBC Distribution Width 14.3 % (11.5-14.5); Red Blood Cell (RBC) Count 3.54 mill/uL (4.70-6.10); White Blood Cell (WBC) Count 14.3 thou/uL (4.8-10.8)
[2017-11-20 05:20] LABS: Band 11 % (5-11); Lymphocytes 16 % (21-51); MDiff Complete? YES; Metamyelocyte 2 % (0-0); Monocytes 5 % (0-10); Neutrophil 66 % (42-75); PLT Morphology Comment Appears Adequate; RBC Morphology Normal
[2017-11-20] MEDS ORDERED: Ondansetron ODT 8 MG TAB PO PRN (07:16)
[2017-11-20] MEDS ORDERED: Ondansetron ODT 8 MG TAB SL PRN (07:16)
[2017-11-20] MEDS ORDERED: Ondansetron ODT 4 MG TAB PO PRN ×2 (07:16→08:05)
[2017-11-20] MEDS ORDERED: Ondansetron ORAL SOLN. 4 MG/5 ML UDCUP PO PRN ×2 (07:16)
--- NOTE | 2017-11-20 07:27 | PRG ---
DATE OF SERVICE: 11/20/2017 SUBJECTIVE: Jasmeet Mcqueen is doing well today. He has passed stool and had flatus. He states his ab domen is normal baseline protuberance, although it is softly distended and tympanitic. OBJECTIVE: VITAL SIGNS: Blood pressure 142/86, pulse 104, respiratory rate 22. CARDIAC: Regular rate and rhythm. Heart rate 80. He has not had any pauses in the last 48 hours. LUNGS: Clear to auscultation, no wheezing. ABDOMEN: Soft, bowel sounds present, slightly tympanitic, distended. NG tube output clear, indicati ve of ice chips and sips of water he is taking, no enteric colored output noted. Patient denies havi ng significant pain. EXTREMITIES: Unremarkable. LABORATORY DATA: Sodium 146, potassium 3.8, BUN 54, creatinine 2.32. GFR up to 34, hemoglobin 10, w nate count 14. Urine output 3640 over the last 24 hours. Gastric drainage 400 last 24 hours. ASSESSMENT AND PLAN: The patient is doing well. We will plan to remove his NG tube, start his oral medications. Begin clear liquids, go slowly. We will increase mobility. Could transfer to the [facility] floor or telemetry per Dr. Muhammad. Discussion was discussed with her. He has not had any cardiac pauses in 48 hours. This most likely was related to his gastric distention per discussion with Dr. Cevallos.
[2017-11-20] MEDS: Famotidine 40 MG/4 ML VIAL SLOW IVP SCH (07:53)
[2017-11-20] MEDS: hydrALAZINE 20 MG/ML VIAL SLOW IVP PRN ×2 (08:41→19:45)
--- NOTE | 2017-11-20 08:45 | RAD ---
PORTABLE AP CHEST XRAY: DATE: 11/20/17. HISTORY: COPD, on ventilator. Followup evaluation. COMPARISON: 11/19/17. FINDINGS: The right internal jugular vein, tunneled hemodialysis catheter, nasogastric tube, and left internal jugular vein vascular congestion remain in place and unchanged in position. The most inferior aspect right lateral costophrenic angle is excluded from view. However, the lungs do appear overall clear. The cardiac silhouette and pulmonary vasculature are unchanged in appearance compared to prior stud y. No focal area of consolidation or pleural effusion is seen. No other interval change. IMPRESSION: Stable chest. POS: [facility]
--- NOTE | 2017-11-20 08:56 | PDOC.CTH ---
<Eve Merino - Last Filed: 11/20/17 08:54> Cardiology Progress Note - Subjective The pt seen and examined. No overnight events. No cardiac complaints. His NG tube was d/benny and tolerates clear liquid diet well. - Objective Vital Signs Temp Pulse Resp Pulse Ox 11/20/17 08:17 108 H 25 H 96 11/20/17 07:56 97.9 F 105 H 20 97 11/20/17 07:00 97.9 F 11/20/17 04:00 98.2 F 11/20/17 02:28 92 19 98 11/20/17 00:00 98.1 F 11/19/17 22:07 97 16 95 Weight 175 lb 11.335 oz 11/19/17 11/20/17 11/21/17 06:59 06:59 06:59 Intake Total 1498 3217 Output Total 3539 4040 547 Balance -2041 -823 -547 - Physical Examination General/Neuro: alert & oriented x3 Neck: no JVD present Lungs: CTA (very diminished at bases; encourage to use IS q1hr) Heart: RRR Abdomen: soft Extremities: other: (No edema) - Telemetry Telemetry Rhythm: SR - Labs Result Diagrams: 11/20/17 04:18 11/20/17 04:18 Troponin/CKMB CK-MB (CK-2) 4.8 ng/mL (0-6.6) 11/17/17 14:52 Troponin I 0.073 ng/mL (< 0.028) H 11/17/17 14:52 - Assessment/Plan 1. S/p Incarcerated Rt inguinal hernia with reduction of small bowel obstruction and HD cath placement on 11/17/17 - Well tolerate with PO and clear liquid diet at this moment; He had BM and passing flatus; managed by surgeon 2. 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 to monitor on tele 3. Ischemic CMY with diastolic HF - stable 4. HTN - Resume Coreg 12.5mg BID from this AM for BP and tachydardia 5. GERMANIA on CKD stage 3 - stable; managed by glazier stained glass 6. Hyperlipidemia - Will resume Statin from tonight. 7. DM type 2 - managed by PCP 8. COPD - stable; managed by line operator 9. Anemia - improving today; cont. to monitor 10. Hyponatremia - better today MAR reviewed * Echo in 08/2017 showed EF 45-50%, mild-mod dilated LA, mild MR, mild TR. Review of Systems - Review of Systems Constitutional: reports: no symptoms reported EENTM: reports: no symptoms reported Respiratory: reports: no symptoms reported Cardiac (ROS): reports: no symptoms reported ABD/GI: reports: no symptoms reported : reports: no symptoms reported Musculoskeletal: reports: no symptoms reported <Jordon Muhammad - Last Filed: 11/20/17 10:33> Cardiology Progress Note - Objective Vital Signs Temp Pulse Resp BP Pulse Ox 11/20/17 10:14 174/89 H 11/20/17 08:17 108 H 25 H 96 11/20/17 07:56 97.9 F 105 H 20 97 11/20/17 07:00 97.9 F 11/20/17 04:00 98.2 F 11/20/17 02:28 92 19 98 11/20/17 00:00 98.1 F Weight 175 lb 11.335 oz 11/19/17 11/20/17 11/21/17 06:59 06:59 06:59 Intake Total 1498 3217 569 Output Total 3539 4040 547 Balance -1221 823 22 - Labs Result Diagrams: 11/20/17 04:18 11/20/17 04:18 Troponin/CKMB CK-MB (CK-2) 4.8 ng/mL (0-6.6) 11/17/17 14:52 Troponin I 0.073 ng/mL (< 0.028) H 11/17/17 14:52 - Assessment/Plan Pt. seen and eval. by me. I agree with the A/P by the OIL WELL DIRECTIONAL SURVEYOR. Chest: decr. BS throughout ,no rales or wheeze. RRR, mild tachycardia.No edema. He is taking po now and doing well. Resume betablockers for HR and BP control. Cardiac status is stable.
--- NOTE | 2017-11-20 09:20 | PRG ---
DATE OF SERVICE: 11/20/2017 SUBJECTIVE: This is a 67-year-old gentleman being seen for acute kidney injury. The patient denies any nausea, vomiting or chest pain. PHYSICAL EXAMINATION: GENERAL: Patient is awake, alert. VITAL SIGNS: Afebrile, pulse 75, breathing 16, blood pressure 130/86. OBJECTIVE: See above. Awake, alert, in no acute distress. GENERAL APPEARANCE AND MENTAL STATUS: Fair. HEAD/NECK: Normocephalic. Atraumatic. EYES: EOMI. No deformity. EARS: Clear. No ulcers. NOSE: Intact. No lesions. MOUTH: Clear. No discharge. THROAT: Clear. No exudate. LUNGS: Clear. No crackles. CARDIAC: S1, S2. No rub. ABDOMEN: Benign. BS+. GENITALIA/RECTUM: Estrada absent. BACK/EXTREMITIES: Edema 0+ Ulcer- NEUROLOGICAL: Alert and motor intact. SKIN: Rash- Bruise- LYMPHATICS: Edema- Ulcer- LABORATORY DATA: Hemoglobin 10.1, creatinine 2.8. ASSESSMENT AND RECOMMENDATIONS: 1. Acute kidney injury, improving. 2. Hypertension, stable. 3. Anemia, stable. 4. Hyponatremia. Would recommend increase free water. No indication for dialysis.
[2017-11-20] MEDS ORDERED: Carvedilol 6.25 MG TAB PO SCH (10:00)
[2017-11-20] MEDS: Carvedilol 6.25 MG TAB PO SCH ×2 (10:14→16:18)
--- NOTE | 2017-11-20 14:01 | PQF ---
CLINICAL DOCUMENTATION IMPROVEMENT CLARIFICATION FORM: ICD-10 Updated PLEASE DO AN ADDENDUM TO THE PROGRESS NOTE WITH ANY DOCUMENTATION UPDATES OR ADDITIONS AND CARRY THROUGH TO DC SUMMARY. THANK YOU. DATE: 11/20/17 ATTN: Dr. Parson Please exercise your independent, professional judgment in responding to the clarification form. Clinical indicators are provided on the bottom of this form for your review Please check appropriate box(s): [ ] Chronic Respiratory Failure only [ ] with Hypoxia [ ] with Hypercapnia [ ] Other diagnosis [ ] Unable to determine In addition, please specify: Present on Admission (POA): [ ] Yes [ ] No [ ] Unable to determine For continuity of documentation, please document condition throughout progress notes and discharge summary. Thank You. CLINICAL INDICATORS - SIGNS / SYMPTOMS / LABS ER REPORT: RESP. 20, O2 SAT 97 ON 2L OXYGEN. H&P: RECENT HOSPITALIZATION 2 MONTHS AGO FOR COPD EXACERBATION HE USES OXYGEN CONTINUOUSLY AT HOME. RISKS: H&P: PMH: COPD , STEROID TAPER RECENTLY, HOME OXYGEN DEPENDENT RECENTLY STARTED EARLIER THIS YR. CORONARY DISEASE. DM. HTN. TREATMENT: PULMONARY CONSULT ORDER 11/18: RESP: O2 TO KEEP SATS 92% CPOE 11/17: SOLU-CORTEF 50MG IV Q6 HR CPOE 11/18: DUONEB Q4 HR -RT Thank you, Kadi (This form is maintained as a part of the permanent medical record) 2015 [employer]. All Rights Reserved Kadi Milian RN, BSN [email or web address] Office: [phone] [facility]
--- NOTE | 2017-11-20 15:20 | PRG ---
DATE OF SERVICE: 11/20/2017 SUBJECTIVE: Jasmeet Mcqueen has no complaints. He says he is feeling great. He is sitting up in the b edside chair when I evaluated him and he had just been for a walk. OBJECTIVE: VITAL SIGNS: He is afebrile, heart rate is 85, respiratory rate is 18, oximetry is 100% on 2 liters, blood pressure 162/84. Intake and output is negative 823. LUNGS: Clear. HEART: Regular rhythm. ABDOMEN: Soft. IMAGING: Chest radiograph was reviewed. Chest radiograph was unchanged. IMPRESSION: 1. Chronic obstructive pulmonary disease. 2. Coronary artery disease. 3. Status post incarcerated hernia, clinically doing much better than I would have expected. PLAN: Continue current care.
[2017-11-20] MEDS: Acetaminophen 500 MG TAB PO SCH (17:42)
[2017-11-20] MEDS: Atorvastatin Calcium 20 MG TAB PO SCH (20:20)
[2017-11-21] MEDS: Acetaminophen 500 MG TAB PO SCH ×4 (01:00→17:11)
[2017-11-21] MEDS: Hydrocortisone Sod Succ/PF 100 mg/2 ml Vial IVP SCH (05:14)
[2017-11-21] MEDS: hydrALAZINE 20 MG/ML VIAL SLOW IVP PRN ×2 (05:14→08:57)
[2017-11-21] MEDS: Sodium Chloride 0.9% 1,000 ML IV SCH (05:15)
[2017-11-21 05:44] LABS: Band 7 % (5-11); Hemoglobin 10.8 g/dL (14.0-18.0); Lymphocytes 14 % (21-51); MDiff Complete? YES; Mean Corpuscular HGB CONC 32.2 g/dL (32.0-36.0); Mean Corpuscular Hemoglobin 28.9 pg (27.0-31.0); Mean Corpuscular Volume 89.8 fl (80.0-94.0); Mean Platelet Volume 7.9 fL (7.4-10.4); Metamyelocyte 1 % (0-0); Monocytes 5 % (0-10); Neutrophil 73 % (42-75); PLT Morphology Comment Appears Adequate; Platelet Count 299 thou/uL (130-400); RBC Distribution Width 14.4 % (11.5-14.5); Red Blood Cell (RBC) Count 3.73 mill/uL (4.70-6.10); White Blood Cell (WBC) Count 14.7 thou/uL (4.8-10.8)
[2017-11-21 06:22] LABS: ALT (SGPT) 7 U/L (8-55); AST (SGOT) 11 U/L (5-34); Albumin 3.4 g/dL (3.4-4.8); Alkaline Phosphatase 49 U/L (40-150); Anion Gap 11 mmol/L (10-20); BUN (Urea Nitrogen) 34 mg/dL (8.4-25.7); Bilirubin, Total 0.6 mg/dL (0.2-1.2); Calc. Creatinine Clearance 54 mL/min (70-130); Carbon Dioxide 29 mmol/L (23-31); Chloride 107 mmol/L (98-107); Estimated GFR-MDRD 56; Globulin 2.5 g/dL (2.4-3.5); Glucose 196 mg/dL (80-115); Potassium 3.4 mmol/L (3.5-5.1); Protein, Total 5.9 g/dL (5.8-8.1); Sodium 144 mmol/L (136-145)
[2017-11-21] MEDS: HumaLOG 300 UNITS/3 ML VIAL SC PRN ×2 (06:31→12:08)
[2017-11-21] MEDS ORDERED: traMADol HCl 50 MG TAB PO PRN ×2 (08:10)
--- NOTE | 2017-11-21 08:47 | PRG ---
DATE OF SERVICE: 11/21/2017 SUBJECTIVE: Jasmeet Mcqueen is doing well today. He is up in a chair. He is tolerating his full liqui ds without nausea or vomiting. He is urinating spontaneously. OBJECTIVE: VITAL SIGNS: 98.5 degrees, 16, 96% saturation, 134/84. LUNGS: Clear to auscultation. CARDIAC: Regular rate and rhythm without murmur, rub, or gallop. ABDOMEN: Distended, tympanitic, nontender. Surgical wound, right groin, looks good. Scrotum is mil dly swollen. EXTREMITIES: He has a scrotal support in place. He is asking if he can wear briefs instead. LABORATORY DATA: White count 14.7, hemoglobin 10.8. Sodium 144, potassium 3.4, BUN 34, creatinine 1 .52, GFR 56. ASSESSMENT AND PLAN: 1. Chronic kidney disease with acute renal failure, improving with day-to-day improvement of his comfort al function. We will plan to saline lock his IV. We would plan to leave his central line in for the duration of his hospitalization. Avoid IVs peripheral. 2. No evidence of cardiac pauses over the last 72 hours. Continue telemetry monitoring. 3. Chronic obstructive pulmonary disease. Wean steroids per Dr. Lowry. Change to p.o. steroids. C ontinue full liquids for now until better GI function and abdominal distention improves.
[2017-11-21] MEDS: Carvedilol 6.25 MG TAB PO SCH ×2 (08:51→16:50)
[2017-11-21] MEDS: Polyethylene Glycol 3350 17 GM Packet PO SCH (08:58)
--- NOTE | 2017-11-21 08:59 | PDOC.CTH ---
<Eve Merino - Last Filed: 11/21/17 08:57> Cardiology Progress Note - Subjective The pt seen and examined. No overnight events. No cardiac complaints. He is up to chair without any distress. - Objective Vital Signs Temp Pulse Resp BP BP Pulse Ox 11/21/17 08:51 190/93 H 11/21/17 06:52 101 H 16 96 11/21/17 06:21 134/84 11/21/17 05:14 86 11/21/17 04:00 98.5 F 88 18 183/91 H 96 11/21/17 02:30 86 16 11/21/17 00:15 98.1 F 97 20 179/94 H 96 11/20/17 22:29 90 20 Weight 175 lb 11.335 oz 11/20/17 11/21/17 11/22/17 06:59 06:59 06:59 Intake Total 3217 1449 Output Total 4040 997 Balance -823 452 - Physical Examination General/Neuro: alert & oriented x3 Neck: no JVD present Lungs: CTA (very diminished at bases) Heart: RRR Abdomen: soft Extremities: other: (No edema) - Telemetry Telemetry Rhythm: SR, PVCs, 80s - Labs Result Diagrams: 11/21/17 04:57 11/21/17 04:57 Troponin/CKMB CK-MB (CK-2) 4.8 ng/mL (0-6.6) 11/17/17 14:52 Troponin I 0.073 ng/mL (< 0.028) H 11/17/17 14:52 - Assessment/Plan 1. S/p Incarcerated Rt inguinal hernia with reduction of small bowel obstruction and HD cath placement on 11/17/17 - Well tolerate with PO and full liquid diet at this moment; He had BM and passing flatus; managed by surgeon 2. 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 to monitor on tele 3. Ischemic CMY with diastolic HF - stable 4. HTN - Resume Norvasc 5mg daily from this AM. Cont. to monitor 5. GERMANIA on CKD stage 3 - improving; NS IV was d/benny; managed by payroll benefits clerk 6. Hyperlipidemia - On Statin. 7. DM type 2 - managed by PCP 8. COPD with 2L home O2 - stable; managed by academic intern 9. Anemia - improving today; cont. to monitor 10. Hyponatremia - better today MAR reviewed * Echo in 08/2017 showed EF 45-50%, mild-mod dilated LA, mild MR, mild TR. * No event of pauses over 72 hours. Review of Systems - Review of Systems Constitutional: reports: no symptoms reported EENTM: reports: no symptoms reported Respiratory: reports: no symptoms reported Cardiac (ROS): reports: no symptoms reported ABD/GI: reports: no symptoms reported : reports: no symptoms reported <Jordon Muhammad - Last Filed: 11/21/17 16:04> Cardiology Progress Note - Objective Vital Signs Temp Pulse Pulse Pulse Resp BP BP 11/21/17 15:00 100 16 11/21/17 12:05 98.6 F 85 20 11/21/17 11:32 102 H 93 171/93 H 11/21/17 10:16 104 H 18 11/21/17 09:32 96 136/80 11/21/17 08:57 91 190/93 H 11/21/17 08:51 190/93 H 11/21/17 08:48 98.4 F 91 20 11/21/17 06:52 101 H 16 11/21/17 06:21 11/21/17 05:14 86 BP BP Pulse Ox 11/21/17 15:00 96 11/21/17 12:05 144/83 H 98 11/21/17 11:32 144/79 H 11/21/17 10:16 95 11/21/17 09:32 11/21/17 08:57 11/21/17 08:51 11/21/17 08:48 96 11/21/17 06:52 96 11/21/17 06:21 134/84 11/21/17 05:14 Weight 175 lb 11.335 oz 11/20/17 11/21/17 11/22/17 06:59 06:59 06:59 Intake Total 3217 1449 Output Total 4040 997 Balance -823 452 - Labs Result Diagrams: 11/21/17 04:57 11/21/17 04:57 Troponin/CKMB CK-MB (CK-2) 4.8 ng/mL (0-6.6) 11/17/17 14:52 Troponin I 0.073 ng/mL (< 0.028) H 11/17/17 14:52 - Assessment/Plan Pt seen and eval. by me. I agree with the A/P by the ASSISTANT TO THE PRESIDENT. Chest clear, decr. BS throughout. RRR. Stable cardiac status.
[2017-11-21] MEDS: Amlodipine 5 MG TAB PO SCH (09:32)
--- NOTE | 2017-11-21 10:10 | PQF ---
CLINICAL DOCUMENTATION IMPROVEMENT CLARIFICATION FORM: ICD-10 Updated PLEASE DO AN ADDENDUM TO THE PROGRESS NOTE WITH ANY DOCUMENTATION UPDATES OR ADDITIONS AND CARRY THROUGH TO DC SUMMARY. THANK YOU. DATE: 11/21/17 ATTN: Dr. Lowry Please exercise your independent, professional judgment in responding to the clarification form. Clinical indicators are provided on the bottom of this form for your review Please check appropriate box(s): [ ] Chronic Respiratory Failure only [ ] with Hypoxia [ ] with Hypercapnia [ ] COPD only, with no chronic respiratory failure. [ ] Other diagnosis [ ] Unable to determine In addition, please specify: Present on Admission (POA): [ ] Yes [ ] No [ ] Unable to determine For continuity of documentation, please document condition throughout progress notes and discharge summary. Thank You. CLINICAL INDICATORS - SIGNS / SYMPTOMS / LABS ER REPORT: RESP. 20, O2 SAT 97 ON 2L OXYGEN. H&P: RECENT HOSPITALIZATION 2 MONTHS AGO FOR COPD EXACERBATION HE USES OXYGEN CONTINUOUSLY AT HOME. RISKS: H&P: PMH: COPD , STEROID TAPER RECENTLY, HOME OXYGEN DEPENDENT RECENTLY STARTED EARLIER THIS YR. CORONARY DISEASE. DM. HTN. TREATMENT: PULMONARY CONSULT ORDER 11/18: RESP: O2 TO KEEP SATS 92% CPOE 5/5: SOLU-CORTEF 50MG IV Q6 HR CPOE 5/6: DUONEB Q4 HR -RT Thank you, Kadi (This form is maintained as a part of the permanent medical record) 2015 [email or web address]. All Rights Reserved Kadi Milian RN, BSN [email or web address] Office: [phone] [facility]
--- NOTE | 2017-11-21 10:57 | PRG ---
DATE OF SERVICE: 11/21/2017 SUBJECTIVE: This is a 67-year-old male being seen for acute kidney injury. Denies any nausea, vomit ing, or chest pain. PHYSICAL EXAMINATION: GENERAL: Patient is awake, alert. VITAL SIGNS: Afebrile, pulse 100, breathing 16, blood pressure 136/80. HEAD/NECK: Normocephalic. Atraumatic. EYES: EOMI. No deformity. EARS: Clear. No ulcers. NOSE: Intact. No lesions. MOUTH: Clear. No discharge. THROAT: Clear. No exudate. LUNGS: Clear. No crackles. CARDIAC: S1, S2. No rub. ABDOMEN: Benign. BS+. GENITALIA/RECTUM: Estrada absent. BACK/EXTREMITIES: Edema 0+ Ulcer- NEUROLOGICAL: Alert and motor intact. SKIN: Rash- Bruise- LYMPHATICS: Edema- Ulcer- LABORATORY DATA: Show hemoglobin 10.8, creatinine is 1.5. ASSESSMENT AND PLAN: 1. Acute kidney injury with chronic kidney disease stage 3 improved. 2. Hypertension, stable. 3. Anemia, stable. Creatinine is pretty much close to baseline. I will sign off on this patient. Please reconsult as needed.
[2017-11-21] MEDS: Atorvastatin Calcium 20 MG TAB PO SCH (20:34)
--- NOTE | 2017-11-21 21:36 | PRG ---
DATE OF SERVICE: 11/21/2017 SUBJECTIVE: Mr. Mcqueen says he feels great. OBJECTIVE: VITAL SIGNS: He is afebrile, heart rates in the 80s, respiratory rates in the teens, oximetry is 97% on 2 liters, blood pressure 136/84. LUNGS: Clear. HEART: Regular rhythm. ABDOMEN: Soft. LABORATORY DATA: White count is 14.7, hemoglobin 10.8, platelets 299. Sodium 144, potassium 3.4, ch loride 107, bicarbonate 29, BUN 34, creatinine 1.52. Creatinine was 2.32 yesterday. IMPRESSION: 1. Status post incarcerated hernia. 2. Coronary artery disease, inoperable because of severe obstructive lung disease. 3. Acute on chronic kidney disease with improving renal function. 4. Diabetes. PLAN: Continue current supportive care, steroids can be discontinued at this point.
[2017-11-22] MEDS ORDERED: PROVENTIL INHALER 6.7 G (200 INHALATIONS) INH PRN (08:37)
[2017-11-22] MEDS: Carvedilol 6.25 MG TAB PO SCH (08:50)
[2017-11-22] MEDS: Amlodipine 5 MG TAB PO SCH (08:50)
[2017-11-22] MEDS: Polyethylene Glycol 3350 17 GM Packet PO SCH (08:51)
[2017-11-22] MEDS: HumaLOG 300 UNITS/3 ML VIAL SC PRN ×2 (08:51→12:33)
[2017-11-22] MEDS ORDERED: Amlodipine 5 MG TAB PO SCH (09:00)
[2017-11-22] MEDS ORDERED: Potassium Chloride 20 MEQ TAB PO SCH (09:15)
[2017-11-22] MEDS: Spironolactone 25 MG TAB PO SCH (09:23)
[2017-11-22] MEDS: Clopidogrel Bisulfate 75 MG TAB PO SCH (09:24)
[2017-11-22] MEDS: Losartan 25 MG TAB PO SCH (09:24)
[2017-11-22] MEDS: Carvedilol 25 MG TAB PO SCH ×2 (09:25→20:46)
[2017-11-22] MEDS ORDERED: Carvedilol 6.25 MG TAB PO SCH (09:30)
--- NOTE | 2017-11-22 11:30 | PRG ---
DATE OF SERVICE: 11/22/2017 SUBJECTIVE: Mr. Jasmeet Mcqueen is doing well today. He has had a bowel movement. He has passed flatu s. He has not had any nausea or vomiting. He denies any significant pain. OBJECTIVE: VITAL SIGNS: 98.4 degrees, 83, 150/93. LUNGS: Clear to auscultation. CARDIAC: Regular rate and rhythm without murmur or gallop. ABDOMEN: Soft, plus bowel sounds, slightly tympanitic, but less so. Right groin incision is well he aled, no wound problems. LABORATORY DATA: This morning, CBC was not obtained. Basic metabolic profile was not obtained. ASSESSMENT: Acute kidney injury superimposed on chronic kidney disease secondary to dehydration from an incarcerated inguinal hernia with bowel obstruction. PLAN: If this has continued improvement, we will plan to give oral dose of potassium today, check hi s base met tomorrow. We will plan on removal of his hemodialysis catheter tomorrow at the bedside an d most likely can be discharged home tomorrow if Cardiology agrees.
--- NOTE | 2017-11-22 11:47 | PRG ---
DATE OF SERVICE: 11/22/2017 SUBJECTIVE: Jasmeet Mcqueen is doing well. OBJECTIVE: VITAL SIGNS: His heart rate is 91, blood pressure 146/86, respiratory rate is 18, oximetry is 97 on 2 liters. LUNGS: Clear. HEART: Regular rhythm. ABDOMEN: Soft. LABORATORY DATA: White count 14.7 yesterday. There is no lab today except for glucoses. IMPRESSION: 1. Chronic obstructive pulmonary disease, stable. 2. Coronary artery disease, stable. 3. Status post surgery for incarcerated hernia, doing well, hopefully we can discharge in 24-48 hour s.
--- NOTE | 2017-11-22 13:23 | PQF ---
BRITTNY ESTEVEZ ASAD MD [id number] [facility]-A07 [id number] CLINICAL DOCUMENTATION IMPROVEMENT CLARIFICATION FORM: ICD-10 Updated PLEASE DO AN ADDENDUM TO THE PROGRESS NOTE WITH ANY DOCUMENTATION UPDATES OR ADDITIONS AND CARRY THROUGH TO DC SUMMARY. THANK YOU. DATE: 11-22-17 ATTN: DR. SAHA Please exercise your independent, professional judgment in responding to the clarification form. Clinical indicators are provided on the bottom of this form for your review Please check appropriate box(s) to clarify if the following diagnosis has been ruled in or ruled out: GERMANIA ON CKD STAGE 3 W/ POSSIBLE ACUTE TUBULAR NECROSIS [ x] Ruled in diagnosis [ x ] Continue to treat [ ] Resolved [ ] Ruled out diagnosis [ ] Cannot rule out diagnosis [ ] Other diagnosis [ ] Unable to determine In addition, please specify: Present on Admission (POA): [ x] Yes [ ] No [ ] Unable to determine For continuity of documentation, please document condition throughout progress notes and discharge summary. Thank You. CLINICAL INDICATORS - SIGNS / SYMPTOMS / LABS LABS: BUN CREAT GFR 5-5 88 6.43 11 5-6 85 4.78 15 5-7 77 3.77 20 5-8 54 2.32 34 5-[address] HERNÁNDEZ CONSULT: * GERMANIA ON CKD STAGE 3, MOST LIKELY FROM VOLUME DEPLETION AND POSSIBLE ACUTE TUBULAR NECROSIS. * MAKING MINIMAL AMOUNT OF URINE; HYPOTENSIVE (BP 75/41) * HEMODIALYSIS CATHETER PLACED BY SURGEON IN ANTICIPATION FOR NEED OF DIALYSIS IN THE NEXT FEW DAYS RISK FACTORS 5-[address] WHITMORE: GERMANIA ON CKD D/T DEHYDRATION FROM INCARCERATED INGUINAL HERNIA W/ BOWEL OBSTRUCTION TREATMENTS 5-5 OP NOTE: HEMODIALYSIS CATHETER MAR: IVF 5-5 / 5-6 VASOPRESSIN 5-5 CCU MONITORING ON VENT AFTER SURGERY THANK YOU, CYNDI (This form is maintained as a part of the permanent medical record) 2015 [employer]. All Rights Reserved Cyndi Rodriguez RN, [email or web address] Cell [facility]
--- NOTE | 2017-11-22 14:45 | PQF ---
BRITTNY ESTEVEZ RICHARD D MD [id number] [facility]-[id number] CLINICAL DOCUMENTATION IMPROVEMENT CLARIFICATION FORM: ICD-10 Updated PLEASE DO AN ADDENDUM TO THE PROGRESS NOTE WITH ANY DOCUMENTATION UPDATES OR ADDITIONS AND CARRY THROUGH TO DC SUMMARY. THANK YOU. DATE: 11-22-17 ATTN: DR. WHITMORE Please exercise your independent, professional judgment in responding to the clarification form. Clinical indicators are provided on the bottom of this form for your review Please check appropriate box(s): [ ] Hypovolemic Shock [ ] Shock Unspecified [ ] Other diagnosis [ ] Unable to determine In addition, please specify: Present on Admission (POA): [ ] Yes [ ] No [ ] Unable to determine For continuity of documentation, please document condition throughout progress notes and discharge summary. Thank You. CLINICAL INDICATORS - SIGNS / SYMPTOMS / LABS ER: BP 74/51; 86/36; 95/67; 103/58; 85/44 CONSTIPATED / NAUSEA 5-5 LACTIC ACID 2.4 H&P: DEHYDRATION - BP IMPROVED W/ HYDRATION, CONTINUE HYDRATION ACUTE RENAL FAILURE VASUDEV CONSULT: MAKING MINIMAL AMOUNT OF URINE; HYPOTENSIVE RISK FACTORS H&P: DEHYDRATION INCARCERATED RIGHT INGUINAL HERNIA W/ BOWEL OBSTRUCTION GERMANIA TREATMENTS: ER: 2L NS IV - BOLUS LEVAQUIN 5-5 VASOPRESSIN IV 5-5 OP NOTE: RIGHT IJ CUFFED TUNNEL DIALYSIS CATHETER; PHS REPAIR OF RIGHT INGUINAL HERNIA, REDUCTION OF THE CECUM, APPENDIX, AND ILEUM ICU MONITORING ON VENT AFTER SURGERY THANK YOU, CYNDI (This form is maintained as a part of the permanent medical record) 2015 [employer]. All Rights Reserved Cyndi Rodriguez RN, BS [email or web address] [facility]ITAL[facility]
[2017-11-22] MEDS ORDERED: metFORMIN 500 MG TAB PO SCH (17:00)
--- NOTE | 2017-11-22 18:36 | PDOC.CTH ---
<Eve Merino - Last Filed: 11/22/17 18:34> Cardiology Progress Note - Subjective The pt seen and examined. No overnight events. No cardiac complaints. He tolerates regular diet well. - Objective Vital Signs Temp Pulse Resp BP BP BP Pulse Ox 11/22/17 15:35 98.4 F 79 17 134/78 97 11/22/17 14:25 83 15 99 11/22/17 12:30 98.3 F 85 18 140/76 97 11/22/17 10:58 89 18 97 11/22/17 09:13 91 146/86 H 11/22/17 08:50 91 146/86 H 11/22/17 08:45 98.6 F 91 18 146/86 H 94 L 11/22/17 07:26 83 18 92 L Weight 175 lb 8 oz 11/21/17 11/22/17 11/23/17 06:59 06:59 06:59 Intake Total 1449 760 480 Output Total 997 650 450 Balance 452 110 30 - Physical Examination General/Neuro: alert & oriented x3 Neck: no JVD present Lungs: CTA (diminished at bases) Heart: RRR Abdomen: soft Extremities: other: (No edema) - Telemetry Telemetry Rhythm: SR - Labs Result Diagrams: 11/21/17 04:57 11/21/17 04:57 Troponin/CKMB CK-MB (CK-2) 4.8 ng/mL (0-6.6) 11/17/17 14:52 Troponin I 0.073 ng/mL (< 0.028) H 11/17/17 14:52 - Assessment/Plan 1. S/p Incarcerated Rt inguinal hernia with reduction of small bowel obstruction and HD cath placement on 11/17/17 - Well tolerate with PO and full liquid diet at this moment; He had BM and passing flatus; managed by surgeon 2. 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 to monitor on tele 3. Ischemic CMY with diastolic HF - stable 4. HTN - stable with current med; Cont. to monitor 5. GERMANIA on CKD stage 3 - improving; NS IV was d/benny; managed by level glass forming machine operator 6. Hyperlipidemia - On Statin. 7. DM type 2 - managed by PCP 8. COPD with 2L home O2 - stable; managed by fountain dispenser 9. Anemia - improving today; cont. to monitor 10. Hyponatremia - better today MAR reviewed * Echo in 08/2017 showed EF 45-50%, mild-mod dilated LA, mild MR, mild TR. * No event of pauses over 72 hours. Review of Systems - Review of Systems Constitutional: reports: no symptoms reported EENTM: reports: no symptoms reported Respiratory: reports: no symptoms reported Cardiac (ROS): reports: no symptoms reported ABD/GI: reports: no symptoms reported : reports: no symptoms reported Musculoskeletal: reports: no symptoms reported <Jordon Muhammad - Last Filed: 11/22/17 22:56> Cardiology Progress Note - Objective Vital Signs Temp Pulse Resp BP BP Pulse Ox 11/22/17 22:09 85 16 98 11/22/17 20:00 98.4 F 88 20 154/84 H 97 11/22/17 19:55 98.4 F 88 20 97 11/22/17 19:07 101 H 16 96 11/22/17 15:35 98.4 F 79 17 134/78 97 11/22/17 14:25 83 15 99 11/22/17 12:30 98.3 F 85 18 140/76 97 11/22/17 10:58 89 18 97 Weight 175 lb 8 oz 11/21/17 11/22/17 11/23/17 06:59 06:59 06:59 Intake Total 1449 760 480 Output Total 997 650 450 Balance 452 110 30 - Labs Result Diagrams: 11/21/17 04:57 11/21/17 04:57 Troponin/CKMB CK-MB (CK-2) 4.8 ng/mL (0-6.6) 11/17/17 14:52 Troponin I 0.073 ng/mL (< 0.028) H 11/17/17 14:52 - Assessment/Plan Pt. seen and eval. by me. He continues to do well. I agree with the A/P by the MEDICAL PHYSICIST. Decr.breath sounds but unchanged.
[2017-11-22] MEDS: Mometasone/Formoterol 120 PUFF INHALER INH SCH (19:19)
[2017-11-22] MEDS: Atorvastatin Calcium 20 MG TAB PO SCH (20:46)
[2017-11-22] MEDS ORDERED: Atorvastatin Calcium 20 MG TAB PO SCH (21:00)
[2017-11-23 05:53] LABS: Anion Gap 10 mmol/L (10-20); BUN (Urea Nitrogen) 25 mg/dL (8.4-25.7); Calc. Creatinine Clearance 54 mL/min (70-130); Carbon Dioxide 30 mmol/L (23-31); Chloride 107 mmol/L (98-107); Estimated GFR-MDRD 56; Glucose 138 mg/dL (80-115); Potassium 3.6 mmol/L (3.5-5.1); Sodium 143 mmol/L (136-145)
[2017-11-23] MEDS: Mometasone/Formoterol 120 PUFF INHALER INH SCH (07:00)
[2017-11-23] MEDS ORDERED: Furosemide 40 MG TAB PO SCH (07:30)
[2017-11-23 07:47] VITALS: TEMP 98.5
[2017-11-23] MEDS: Amlodipine 5 MG TAB PO SCH (08:48)
[2017-11-23] MEDS: Polyethylene Glycol 3350 17 GM Packet PO SCH (08:48)
[2017-11-23] MEDS: Losartan 25 MG TAB PO SCH (08:48)
[2017-11-23] MEDS: Clopidogrel Bisulfate 75 MG TAB PO SCH (08:48)
[2017-11-23] MEDS: Carvedilol 25 MG TAB PO SCH (08:48)
[2017-11-23] MEDS: Spironolactone 25 MG TAB PO SCH (08:49)
[2017-11-23] MEDS ORDERED: Acetaminophen 500 MG TAB PO PRN (09:42)
--- NOTE | 2017-11-23 10:14 | PDOC.CTH ---
Cardiology Progress Note - Subjective The pt seen and examined. No overnight events. No cardiac complaints. He is up to chair. He stated he has not walked around the Unit; however, no difficulties to walk to bathroom. - Objective Vital Signs Temp Pulse Resp BP Pulse Ox 11/23/17 08:48 90 11/23/17 07:25 98.5 F 90 16 155/88 H 98 11/23/17 07:01 88 16 98 11/23/17 07:00 88 18 98 11/23/17 04:00 99.0 F 89 20 145/76 H 96 Weight 175 lb 8 oz 11/22/17 11/23/17 11/24/17 06:59 06:59 06:59 Intake Total 760 580 Output Total 650 850 Balance 110 -270 - Physical Examination General/Neuro: alert & oriented x3 Neck: no JVD present Lungs: CTA (very diminished at bases) Heart: RRR Abdomen: soft Extremities: other: (No edema) - Telemetry Telemetry Rhythm: SR - Labs Result Diagrams: 11/21/17 04:57 11/23/17 04:26 Troponin/CKMB CK-MB (CK-2) 4.8 ng/mL (0-6.6) 11/17/17 14:52 Troponin I 0.073 ng/mL (< 0.028) H 11/17/17 14:52 - Assessment/Plan 1. S/p Incarcerated Rt inguinal hernia with reduction of small bowel obstruction and HD cath placement on 11/17/17 - Well tolerate with PO and regular diet; managed by surgeon 2. 3V CAD with hx of [place] in 2011 - stable; the pt is not a good candidate due to severe COPD; cont. to monitor on tele 3. Ischemic CMY with diastolic HF - stable 4. HTN - stable with current med; Cont. to monitor 5. GERMANIA on CKD stage 3 - stable; HD cath will be d/benny today; managed by head doffer 6. Hyperlipidemia - On Statin. 7. DM type 2 - managed by PCP 8. COPD with 2L home O2 - stable; managed by supervisor [employer] 9. Anemia - improving today; cont. to monitor 10. Hyponatremia - better today 11. PAD - Plan for AFRO as outpt. MAR reviewed * Echo in 08/2017 showed EF 45-50%, mild-mod dilated LA, mild MR, mild TR. * No event of pauses over 72 hours. * From Cardiac standpoint, the pt is stable to d/c home. The pt will F/u with Dr Muhammad' office after AFRO procedure as outpt. Review of Systems - Review of Systems Constitutional: reports: no symptoms reported EENTM: reports: no symptoms reported Respiratory: reports: no symptoms reported Cardiac (ROS): reports: no symptoms reported ABD/GI: reports: no symptoms reported : reports: no symptoms reported Musculoskeletal: reports: no symptoms reported
--- NOTE | 2017-11-23 10:54 | DIS ---
DISCHARGE DIAGNOSES: 1. Incarcerated right inguinal hernia with small-bowel obstruction. 2. Chronic obstructive pulmonary disease. 3. Coronary artery disease. 4. Cardiac pause during distention and tympany resolved not recurring with monitoring under supervis ion Dr. Muhammad. 5. Diabetes mellitus. 6. Hypertension. 7. History of myocardial infarction in 2011. HISTORY: A 67-year-old black male recently hospitalized for cardiopulmonary reasons now reports to [facility] emergency room with a distended abdomen, incarcerated right inguinal hernia verified by CAT scan. He has not urinated much in the past 4 days. The patient reports smoking cessation 2011 when he had a myocardial infarction. Two months ago for COPD exacerbation he was hospitalized, treated by [facility], medical, cardiac service. The patient presented on this occasion with acute renal failure. Po tassium 4.5, carbon dioxide 22, BUN 88, creatinine 6.4, GFR 11. Lactic acid 2.4. Blood pressure was 70, corrected with IV fluid. The patient was admitted, resuscitated with fluids, taken to the opera ting room were a right inguinal hernia repair with mesh was undertaken. The patient was monitored in the ICU, extubated, followed by Pulmonary and Cardiology, stabilized, transferred to [facility]. Immediately postoperatively, he has some cardiac pauses on monitoring and Cardiology believes secondary to abdominal distention and stress. This did not recur again with repeated telemetry and I CU monitoring. He had a cuffed tunnel dialysis catheter central line placed at the time of operation , but he never required dialysis. The patient convalesced to tolerate a diet. NG tube removed. At the time of discharge, his central line and hemodialysis catheter removed. He is tolerating diet wit h normal bowel function. He will be discharged home with Tylenol, Ultram for pain. He will resume his home medications, inhal ers, Plavix, Coreg 25 mg b.i.d., atorvastatin 20 mg at bedtime, amlodipine 5 mg at bedtime, furosemid e 40 mg a day, MiraLax daily, spironolactone 12.5 mg a day. Follow up in my office in 2-3 weeks. Diet and activity as tolerated. Follow up with Dr. Ebenezer swanson or her appointment. Follow up with Pulmonary per their appointment.
[2017-11-23 11:40] VITALS: BP 131/75
--- NOTE | 2017-11-23 20:06 | OP ---
PREOPERATIVE DIAGNOSIS: Acute renal failure, secondary to incarcerated right inguinal hernia. Compl ete renal recovery. POSTOPERATIVE DIAGNOSIS: Acute renal failure, secondary to incarcerated right inguinal hernia. Comp lete renal recovery. PROCEDURE: Removal of right IJ cuffed tunnel dialysis catheter. SURGEON: Quan Parson M.D. ANESTHESIA: None. DETAIL: The patient at the bedside, sutures from the cuffed tunnel hemodialysis catheter removed. C atheter and cuff removed intact. Pressure held hemostatic. Dressing applied. The patient tolerated the procedure well.
--- NOTE | 2017-11-26 11:06 | PQF ---
BRITTNY ESTEVEZ RICHARD D MD [id number] CLINICAL DOCUMENTATION IMPROVEMENT CLARIFICATION FORM: ICD-10 Updated PLEASE DO AN ADDENDUM TO THE PROGRESS NOTE WITH ANY DOCUMENTATION UPDATES OR ADDITIONS AND CARRY THROUGH TO DC SUMMARY. THANK YOU. DATE: 11-22-17 ATTN: DR. WHITMORE Please exercise your independent, professional judgment in responding to the clarification form. Clinical indicators are provided on the bottom of this form for your review Please check appropriate box(s): [ ] Hypovolemic Shock [ ] Shock Unspecified [ ] Other diagnosis [ ] Unable to determine In addition, please specify: Present on Admission (POA): [ ] Yes [ ] No [ ] Unable to determine For continuity of documentation, please document condition throughout progress notes and discharge summary. Thank You. CLINICAL INDICATORS - SIGNS / SYMPTOMS / LABS ER: BP 74/51; 86/36; 95/67; 103/58; 85/44 CONSTIPATED / NAUSEA 5-5 LACTIC ACID 2.4 H&P: DEHYDRATION - BP IMPROVED W/ HYDRATION, CONTINUE HYDRATION ACUTE RENAL FAILURE VASUDEV CONSULT: MAKING MINIMAL AMOUNT OF URINE; HYPOTENSIVE RISK FACTORS H&P: DEHYDRATION INCARCERATED RIGHT INGUINAL HERNIA W/ BOWEL OBSTRUCTION GERMANIA TREATMENTS: ER: 2L NS IV - BOLUS LEVAQUIN 5-5 VASOPRESSIN IV 5-5 OP NOTE: RIGHT IJ CUFFED TUNNEL DIALYSIS CATHETER; PHS REPAIR OF RIGHT INGUINAL HERNIA, REDUCTION OF THE CECUM, APPENDIX, AND ILEUM ICU MONITORING ON VENT AFTER SURGERY THANK YOU, CYNDI (This form is maintained as a part of the permanent medical record) 2015 [employer]. All Rights Reserved Cyndi Rodriguez RN, BS [email or web address] [employer] [facility] HOSPITALAndrade
== END 2017-11-23 12:43 | disposition home or self-care (01) | DRG 350 ==
LOC: ERS 14:24 → SDC 20:53 → CCU 21:31 → 2NO 11-20 09:35
PROVIDERS: ADMIT Specialist; ATTEND Specialist
PROC: 0YU50JZ Supplement Right Inguinal Region with Synthetic Substitute, Open Approach (ICD-10-PCS; principal; 2017-11-17)
PROC: 02HV33Z Insertion of Infusion Device into Superior Vena Cava, Percutaneous Approach (ICD-10-PCS; 2017-11-17)
PROC: 0JH60XZ Insertion of Tunneled Vascular Access Device into Chest Subcutaneous Tissue and Fascia, Open Approach (ICD-10-PCS; 2017-11-17)
PROC: 02HV33Z Insertion of Infusion Device into Superior Vena Cava, Percutaneous Approach (ICD-10-PCS; 2017-11-17)
PROC: 02PYX3Z Removal of Infusion Device from Great Vessel, External Approach (ICD-10-PCS; 2017-11-23)
DX: K40.30 Unilateral inguinal hernia, with obstruction, without gangrene, not specified as recurrent (principal); N17.0 Acute kidney failure with tubular necrosis; E87.1 Hypo-osmolality and hyponatremia; E87.2 Acidosis; I13.0 Hypertensive heart and chronic kidney disease with heart failure and stage 1 through stage 4 chronic kidney disease, or unspecified chronic kidney disease; I50.32 Chronic diastolic (congestive) heart failure; J44.9 Chronic obstructive pulmonary disease, unspecified; I25.10 Atherosclerotic heart disease of native coronary artery without angina pectoris; E11.22 Type 2 diabetes mellitus with diabetic chronic kidney disease; N18.3 Chronic kidney disease, stage 3 (moderate); I25.5 Ischemic cardiomyopathy; E86.0 Dehydration; I25.2 Old myocardial infarction; Z99.81 Dependence on supplemental oxygen; Z87.891 Personal history of nicotine dependence; Z79.84 Long term (current) use of oral hypoglycemic drugs; Z79.02 Long term (current) use of antithrombotics/antiplatelets; Z79.899 Other long term (current) drug therapy
CPT/HCPCS: 36415; 36416; 51702; 71045; 74176; 80048; 80053; 82553; 82805; 83605; 83690; 83880; 84484; 85025; 85060; 93005; 94002; 94003; 94640; 96361; 96374; A4216; C1751; C1752; C1769; C1781; G8978-GP-CL; G8979-GP-CJ; J0131; J0360; J1642; J1644; J1720; J1956; J2001; J2250; J2270; J2370; J2704; J3010; J7050; J7620; P9047; Q0162

== ENCOUNTER 2020-10-04 10:54 | Outpatient (CLI) | payer MEDICARE | END 2020-10-04 10:55 | disposition home or self-care (01) | LOC: BICRAD 10:54 | PROVIDERS: ATTEND Internal Medicine Critical Care Medicine | DX: R06.00 Dyspnea, unspecified (principal); J44.9 Chronic obstructive pulmonary disease, unspecified; I70.0 Atherosclerosis of aorta | CPT/HCPCS: 71046 ==